=== PATIENT | male | born 1935 | race Caucasian/White ===

== ENCOUNTER 2016-11-07 11:46 | Inpatient (IN) | payer BC ==
--- NOTE | ~2016-11-07 | IDS ---
Interim Discharge Summary [facility] [address] [place]. [address] NAME: SONIA ACOSTA : 37 STATUS : ADM IN PAT#: [id number] AGE: 81 ADM/REG DATE : 11/07/16 MR#: [id number] REPORT SERV DATE: 11/18/16 DICTATED BY: REBECA ORONA DATE: 11/18/16 REPORT STATUS : Draft TRANSCRIBED BY: MODL DATE: 11/18/16 ADMISSION DATE: 11/07/2016 DISCHARGE DATE: ADDENDUM: This is a 81-year-old patient who came in and had pneumoperitoneum and eventually went for a resection of his bowel secondary to microperforation and diverticular abscess. He was initially admitted to the hospitalist service. The patient was doing well and was about to go out on 11/14/2016 and then he became more lethargic and encephalopathic. White cell count went up and a CT scan of the abdomen and pelvis were done and showed some fluid collections as well as a retroperitoneal bleed. The patient did not require blood transfusion. Interventional Radiology tapped two pockets of fluid from the abdomen on the . One of these cultures is growing out Klebsiella and E coli, which is similar to what he is growing out from his surgical culture, which is Klebsiella E coli and Streptococcus viridans. The patient has been on Zosyn now for 11 days and probably can continue for two more days or possibly deescalate to Ancef, but I would prefer to continue the Zosyn for two more days and then discontinue it. His leukocytosis is resolving. His encephalopathy is also resolving. His pain medication was cut in half, and this seemed to help as well. He also had retroperitoneal bleed on the CT scan and his subcu heparin was held for that reason, and he currently has SCDs for DVT prophylaxis. Code status was discussed with the family as well as Dr. Von Carson who is the patient's oncologist. 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 He has had XRT to the spine. Two rounds of chemo for mets to the liver and did not do well with the chemotherapy. The family and Dr. Carson spoke. He is not going to continue on chemotherapy and currently his code status is a DNR. The possibility of hospice versus palliative care was discussed with the family and further decision can be made tomorrow on Saturday. They may choose hospice and for discharge planning. So the patient is doing well after drainage of the fluid and can probably go to the floor tomorrow with the hospitalist service to follow since he was admitted to their service. /MODL Rebeca Orona M.D. / [id number] CC: MD Sue Garces M.D.
--- NOTE | ~2016-11-07 | CN ---
Consultation Report [facility] [id number] [place]. [address] NAME: SONIA ACOSTA SR : 37 STATUS : ADM IN [facility]#: [id number] AGE: 81 ADM/REG DATE : 11/07/16 MR#: [id number] REPORT SERV DATE: 11/08/16 DICTATED BY: NEHA LUGO III DATE: 11/07/16 REPORT STATUS : Draft TRANSCRIBED BY: MODL DATE: 11/07/16 CONSULT DATE OF CONSULTATION: 11/07/2016 REASON FOR CONSULT: 1. Acute abdominal pain. 2. Pneumoperitoneum. 3. Recommendation regarding surgical management. HISTORY OF PRESENT ILLNESS: I am asked to see this 81-year-old male emergently in the emergency room for the above reasons. The patient complains of a one-week history of abdominal pain. The pain is primarily in the lower abdomen. The pain has been associated with some nausea and low-grade fever. The patient describes the pain is about 6/10. It is fairly constant in nature. The pain began one week ago. The patient presented to the emergency room today and CT scan of the abdomen and pelvis was performed, which showed evidence for pneumoperitoneum with no obvious source identified. The patient has a history of a duodenal cancer. He is status post Whipple procedure performed in 2009. He has developed evidence recently for recurrent disease with both hepatic metastasis and pelvic metastasis. He is currently undergoing chemotherapy. The patient has had no blood per rectum. He has had mild diarrhea. He is status post radiation therapy to a pelvic recurrence performed earlier this year. PAST MEDICAL HISTORY: 1. History of duodenal cancer as above, with hepatic and pelvic metastasis. 2. Hyperlipidemia. 3. Whipple procedure in 2009 with adjuvant chemotherapy. SOCIAL HISTORY: The patient is retired. He has no history of tobacco or alcohol use. FAMILY HISTORY: Positive for breast cancer and COPD. REVIEW OF SYSTEMS: The patient's 14-point review of systems is otherwise unremarkable. The patient was admitted to the hospital here in 08/2015 with melena. The patient had an upper endoscopy in 11/2015 for followup of an acute gastrojejunal ulcer, which necessitated admission in 08/2015. The ulcer had resolved at that time. OBJECTIVE PHYSICAL EXAMINATION: GENERAL: This is a male, in no acute distress. He is comfortable. He is alert and oriented x3. Consultation Report [facility] [address] [place]. [address] NAME: SONIA ACOSTA SR : 37 STATUS : ADM IN PAT#: [id number] AGE: 81 ADM/REG DATE : 11/07/16 MR#: [id number] REPORT SERV DATE: 11/08/16 DICTATED BY: NEHA LUGO III DATE: 11/07/16 REPORT STATUS : Draft TRANSCRIBED BY: MODL DATE: 11/07/16 VITAL SIGNS: Blood pressure 119/63, temperature 97.8, pulse 118. HEENT: Unremarkable. Cranial nerves 2 through 12 are normal. LUNGS: Clear. CARDIAC: Normal. ABDOMEN: Slightly distended and soft. He has mild tenderness in the lower abdomen with no guarding and no peritoneal signs. EXTREMITIES: Normal. LABORATORY DATA: White blood cell count is elevated at 17,000. Hematocrit 40.6. There are 3% bands. Electrolytes are remarkable for creatinine of 1.67. Glucose is elevated at 266. Total bilirubin is elevated at 2.3. Lipase is 46. CT scan of the abdomen and pelvis, which I reviewed shows pneumoperitoneum with minimal fluid in the pelvis. The source of the pneumoperitoneum is undefined. There is noted to be evidence for pneumomediastinum as well. There is noted to be atelectasis. There is noted to be a poorly defined area of decreased attenuation within the inferior right hepatic lobe consistent with known metastatic disease. This is unchanged from prior scan. There is noted to be pneumobilia likely related to the patient's previous biliary anastomosis. There were no inflammatory changes or definite source for the pneumoperitoneum identified. No bowel wall thickening is noted. Previous MRI of the lumbar spine showed metastatic replacement in S1 in the sacrum involving S2 as well. ASSESSMENT: 1. A 81-year-old male with evidence for pneumoperitoneum, of unclear etiology. The patient has no clinical evidence for sepsis or an acute surgical abdomen. This apparently has been ongoing for one week. There is minimal fluid in the abdominal cavity. 2. History of stage IV duodenal cancer, with known hepatic and osseous metastasis, with ongoing chemotherapy. 3. Hyperglycemia. 4. History of Whipple procedure in 2009. PLAN: I have discussed this with the patient and his family. I explained that consideration for surgery is certainly warranted. However, based on the fact that this is apparently been ongoing for one week, based on minimal fluid in the abdominal cavity, based on the patient's fairly benign clinical exam, based on his ongoing chemotherapy and stage IV malignancy and surgical procedures (the patient has a history of a previous appendectomy in addition to the above), I feel that nonoperative management is warranted at this time, as this may obviate the need for a laparotomy. The patient will be admitted and started on clear fluids, bowel rest, and antibiotics. I have requested a repeat CT scan of the thorax, abdomen, and pelvis with oral contrast tomorrow. I have explained to the patient and family that if at any time his condition deteriorates, then surgical intervention would be needed. Also, if he does not improve, then surgical intervention would be needed. However, based on the fact that he has only pneumoperitoneum with no evidence for any significant abdominal fluid or pelvic fluid, based on the fact that the exact site of pneumoperitoneum is undefined, based on the fact this has been ongoing for one week and a fairly benign clinical exam, I think that a Consultation Report [address] [place]. [address] NAME: SONIA ACOSTA SR : 37 STATUS : ADM IN PAT#: [id number] AGE: 81 ADM/REG DATE : 11/07/16 MR#: [id number] REPORT SERV DATE: 11/08/16 DICTATED BY: NEHA LGUO III DATE: 11/07/16 REPORT STATUS : Draft TRANSCRIBED BY: CHANTEL DATE: 11/07/16 trial of nonoperative management is definitely warranted. Again, the possible need for surgical intervention at any time depending on his clinical course and radiographic findings has been fully and clearly explained to the patient and family. The fact that this is a serious condition in a patient with stage IV disease with major risk for morbidity and mortality with or without surgery has been explained. The patient and family's questions were answered. They clearly understand the risks and agreed to this as planned. We will follow the patient closely with you. [place]/CHANTEL Neha Lugo III, M.D. / [id number] CC: MD Sue Domingo M.D.
--- NOTE | ~2016-11-07 | CN ---
Consultation Report [facility] [address] [place]. [address] NAME: SONIA ACOSTA SR : 37 STATUS : ADM IN PAT#: [id number] AGE: 81 ADM/REG DATE : 11/07/16 MR#: [id number] REPORT SERV DATE: 11/12/16 DICTATED BY: NEHA LUGO III DATE: 11/12/16 REPORT STATUS : Draft TRANSCRIBED BY: CHANTEL DATE: 11/12/16 DATE OF CONSULTATION: 11/12/2016 HISTORY OF PRESENT ILLNESS: Mr. Acosta has developed increasing lower abdominal discomfort this morning. He had a temperature yesterday of 102 degrees. His white blood cell count this morning was elevated at 16,000. On exam, he now has localized and definite left lower quadrant tenderness with guarding, which was not present previously. Based on this, in spite of somewhat equivocal findings on CT scan, I feel the patient most likely has a perforated sigmoid diverticulitis. There is a small amount of fluid in the pelvis which is likely related to this. The patient has failed to respond to several days of antibiotics and I therefore feel that laparotomy with probable colectomy and colostomy is indicated. We will schedule this to be done today for him. On this procedure, the risks, benefits, and alternatives, including, but not limited to the risk for bleeding, infection, enterotomy, injury to any abdominal structure, postop small-bowel obstruction, ileus, incisional hernia, dehiscence, probable need for colostomy, ureteral injury, and unforeseen complications including deep venous thrombosis, pulmonary embolus, myocardial infarction, stroke, pneumonia, and , have been fully and completely explained to the patient's family at length prior to surgery. The fact that this is a major operation with risk for major morbidity and mortality has been explained, as well as expected length of recovery. This patient has multiple comorbid risk factors including stage IV duodenal cancer, which would markedly increase his risk for complications and . This has been explained. The patient and family had questions that have been answered. They understand the risks and agreed to the surgery as planned. AZ/CHANTEL Neha Lugo III, M.D. / [id number] CC: MD Sue Garces M.D.
--- NOTE | ~2016-11-07 | DS ---
Discharge Summary [facility] [address] [place]. [address] NAME: SONIA ACOSTA SR : 37 STATUS : DIS IN PAT#: [id number] AGE: 81 ADM/REG DATE : 11/07/16 MR#: [id number] REPORT SERV DATE: 12/11/16 DICTATED BY: FANI ROSENTHAL DATE: 11/29/16 REPORT STATUS : Draft TRANSCRIBED BY: MODL DATE: 11/29/16 ADMISSION DATE: 11/07/2016 DISCHARGE DATE: 11/29/2016 CHIEF COMPLAINT ON ADMISSION: Abdominal pain. DISCHARGE DIAGNOSES: 1. Pneumoperitoneum and pneumomediastinum secondary to sigmoid perforation, status post sigmoid colectomy and ostomy placement. 2. Sepsis, resolved. 3. Infected pelvic fluid collection, status post HUMA drain. 4. Superficial wound infection, status post wound VAC. 5. Extended spectrum beta-lactamase urinary tract infection. 6. Episode of supraventricular tachycardia, resolved. 7. Metastatic duodenal cancer with METS to the liver. 8. Vesicocutaneous fistula. 9. Weakness/deconditioning. 10.History of Whipple. HISTORY OF PRESENT ILLNESS: Please see full H and P for details regarding initial presentation by Dr. Javid Chahal. HOSPITAL COURSE: Please see interim summary by Dr. Radha Orona regarding his ICU stay and then Dr. Sean Eagle regarding his initial time outside of the ICU. I took over the care of the patient on 11/27/2016. Since that time, the patient's blood pressure has been low. We have decreased his Cardizem, and he has been maintaining a normal sinus rhythm on Coreg alone. Otherwise, he has had good output from his ostomy. Vesicocutaneous fistula is improving. Continue wound VAC and Thomas. Keep Thomas at discharge. Follow up with Dr. Plascencia in two weeks. The patient is eating having very minimal pain. He will be discharged to rehab for further recuperation. He is a Do Not Resuscitate at discharge. Outpatient followup with Dr. Plascencia in two weeks. MEDICATION LIST: Coreg 3.125 p.o. b.i.d., docusate 100 mg p.o. b.i.d., Tylenol p.r.n., MD Kaur p.r.n., Zofran p.r.n. oxycodone p.r.n., Phenergan p.r.n., MiraLAX p.r.n., Marinol p.r.n. nausea, vitamin D, and Ativan p.r.n. Time spent on this discharge is greater than 30 minutes. Please see again interim summaries by Dr. Eagle and Dr. Orona regarding initial parts of the patient's hospitalization. I have addressed family, Case Management, and son at the bedside. ADDENDUM Please note discharge date was changed to 11/30/2016. The patient's discharge was held up on 11/29/2016 due to concern for increasing output from the patient's wound VAC which covered his vesicocutaneous fistula. He was kept in the hospital for one additional day for Dr. Plascencia to assess. He had a cystogram and Dr. Plascencia reviewed this with Urology as Discharge Summary [address] [address] NAME: SONIA ACOSTA SR : 37 STATUS : DIS IN PAT#: [id number] AGE: 81 ADM/REG DATE : 11/07/16 MR#: [id number] REPORT SERV DATE: 12/11/16 DICTATED BY: FANI ROSENTHAL DATE: 11/29/16 REPORT STATUS : Draft TRANSCRIBED BY: CHANTEL DATE: 11/29/16 well as Radiology and felt that this was healing appropriately and no additional intervention needed to be obtained at this time and the patient was discharged to rehab on 11/30/2016. Time spent on this discharge is greater than 30 minutes. DNK/MODL Fani Rosenthal MD / [id number] CC: MD Sue Rosa M.D.
--- NOTE | ~2016-11-07 | OP ---
Record Of Operation [facility] [address] [place]. [address] NAME: SONIA ACOSTA SR : 37 STATUS : ADM IN PAT#: [id number] AGE: 81 ADM/REG DATE : 11/07/16 MR#: [id number] REPORT SERV DATE: 11/13/16 DICTATED BY: NEHA LUGO III DATE: 11/12/16 REPORT STATUS : Draft TRANSCRIBED BY: MODL DATE: 11/12/16 DATE OF PROCEDURE: 11/12/2016 PREOPERATIVE DIAGNOSIS: Pneumoperitoneum, probable perforated viscus. POSTOPERATIVE DIAGNOSES: Pneumoperitoneum, probable perforated viscus; perforated sigmoid colon most likely secondary to diverticular disease. PROCEDURE: Laparotomy with sigmoid colectomy, colostomy, and Tre's pouch. SURGEON: Neha Lugo M.D. ANESTHESIA: General with intubation. COMPLICATIONS: None. ESTIMATED BLOOD LOSS: 50 mL. SPECIMEN: Sigmoid colon. DRAINS: Zackary-Atkins in abdominal cavity and Bhavana in subcutaneous tissue. LAP AND SPONGE COUNT: Correct x3. BRIEF HISTORY: This is a 81-year-old male, who presented initially with pneumoperitoneum of unclear etiology. He initially had been treated nonoperatively with bowel rest and antibiotics. He improved greatly over the last several days. Yesterday morning, was afebrile and tolerating a diet well with normal bowel function. During the late evening yesterday, the patient developed increasing abdominal pain with evidence for sepsis with tachycardia, fever, and leukocytosis. His clinical exam also changed with marked tenderness in the left lower quadrant with peritoneal signs. It was felt based on his clinical exam that he most likely had perforated sigmoid diverticulitis. It was felt that he had several days of bowel rest and antibiotics, and failed to improve, and therefore, the emergent laparotomy with probable sigmoid colectomy and colostomy were indicated. The fact this was a major operation in this patient who is chronically ill with stage IV duodenal cancer and recent chemotherapy was explained to the patient and family. The procedure, risks, benefits, and alternatives, including but not limited to the risk for bleeding, infection, enterotomy, injury to any abdominal structure, postop small bowel obstruction, ileus, incisional hernia, dehiscence, ureteral injury, prolonged ventilator dependency, and unforeseen complications including deep venous thrombosis, pulmonary embolus, myocardial infarction, stroke, pneumonia, and , were fully and completely explained to the patient and family at length. The fact that this was a major operation in an attempt to save the patient's life was explained and the fact that if he did have a perforated viscus, he would likely not survive without surgery was explained. The patient and family had questions, which were answered. They fully understood the risks and agreed Record Of Operation [address] [place]. [address] NAME: SONIA ACOSTA : 37 STATUS : ADM IN PAT#: [id number] AGE: 81 ADM/REG DATE : 11/07/16 MR#: [id number] REPORT SERV DATE: 11/13/16 DICTATED BY: NEHA LUGO III DATE: 11/12/16 REPORT STATUS : Draft TRANSCRIBED BY: CHANTEL DATE: 11/12/16 to surgery as planned. FINDINGS: The patient had evidence for a small perforation in the proximal sigmoid colon with peritoneal contamination. There was no definite evidence for malignancy in the pelvis. DESCRIPTION OF PROCEDURE: After being properly identified and after discussing risks of surgery with the patient and family again in the preoperative area, he was taken to the operating room and placed in supine position on the operating room table. General anesthesia was administered and he was intubated without difficulty. His abdomen was prepped and draped sterilely in the usual fashion. After an appropriate "time-out" per JCAHO standards, a midline incision was made from just below the umbilicus towards the pubis. The incision was continued through the subcutaneous tissue. Hemostasis was controlled with cautery. The subcutaneous tissue and fascial levels were edematous. The incision was continued through the fascia. The abdominal cavity was entered. Immediately on entering the abdomen, we encountered a marked amount of purulent feculent-smelling liquid. This was quickly aspirated dry. There was clearly an inflammatory process centered around the sigmoid colon. After some inspection, we identified a small opening in the anterior wall of the proximal sigmoid colon, clearly the point of perforation. The patient had fibrous material over the small bowel and colon in this area, possibly related to the patient's previous radiation. The point of perforation was on the anterior wall of the sigmoid colon. There was no definite diverticulum associated with this, although the patient had evidence for diverticular disease elsewhere. 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 The entire sigmoid colon was thickened and inflamed. Using sharp dissection, peritoneal reflection to the left colon and sigmoid colon was divided along the line of Toldt. The left colon and sigmoid colon were mobilized medially. We made a window in the mesentery to the proximal sigmoid colon, near its junction with the left colon, proximal to the area of perforation. A JUAN JOSÉ stapler was used to divide the colon at this point. We then made a window in the mesentery to the distal sigmoid colon, distal to the area of perforation and to the most inflammatory part of the involved sigmoid colon, and a JUAN JOSÉ stapler was used to divide the sigmoid colon distally. A portion of sigmoid colon was left in place, as it did not appear to be involved. The mesentery to the involved portion of the sigmoid colon was then divided using a harmonic scalpel. The proximal sigmoid colon margin was marked with a suture and the area of perforation was marked with a suture. This was sent for permanent pathology. The area was irrigated copiously with saline. Hemostasis was assured. A #1 Prolene suture was placed through the divided end of the distal sigmoid colon and this was secured to the left lateral pelvic wall to identify it later for colostomy closure. The left colon was mobilized medially up to the splenic flexure to allow for adequate mobilization for our colostomy. A circular incision was then made in the left lower quadrant of the abdominal wall. The divided end of the distal left colon was brought through this as a colostomy. The entire lower abdomen was irrigated copiously with saline. Hemostasis was assured. A Record Of Operation [facility] [id number] [facility] [place]. [address] NAME: SONIA ACOSTA SR : 37 STATUS : ADM IN [facility]#: [id number] AGE: 81 ADM/REG DATE : 11/07/16 MR#: [id number] REPORT SERV DATE: 11/13/16 DICTATED BY: NEHA LUGO III DATE: 11/12/16 REPORT STATUS : Draft TRANSCRIBED BY: MODL DATE: 11/12/16 Zackary-Atkins drain was brought through a separate stab wound to the right of the incision and placed in the pelvis. The fascia was closed with a running looped #1 PDS suture. Skin was closed with skin anabell over a Trade drain, which was brought out through the inferior aspect of the incision. The stapled end of the divided left colon was excised. The colostomy was matured with interrupted 3-0 chromic sutures to the subcuticular skin. Upon completion of this, the colostomy was pink, viable, and patent. Dressings and a stoma appliance were applied. Anesthesia was reversed and the patient was taken to the recovery room in stable condition. He tolerated the procedure well. His family was informed results of surgery. RHJ/MODL Neha Lugo III, M.D. / [id number] CC: MD Sue Garces M.D.
--- NOTE | ~2016-11-07 | CN ---
Consultation Report [facility] [address] [place]. [address] NAME: SONIA ACOSTA SR : 37 STATUS : ADM IN PAT#: [id number] AGE: 81 ADM/REG DATE : 11/07/16 MR#: [id number] REPORT SERV DATE: 11/08/16 DICTATED BY: LALO SHAH JR. DATE: 11/08/16 REPORT STATUS : Draft TRANSCRIBED BY: MODJessica DATE: 11/08/16 CONSULTATION DATE OF CONSULTATION: 11/08/2016 REQUESTING PHYSICIAN: ER. REASON FOR CONSULTATION: Pneumomediastinum. BRIEF HISTORY: This is a 81-year-old white male who presented with complaints of one-week history of abdominal pain primarily in the lower abdomen with associated nausea and low- grade fever. He described his pain in this area to be fairly constant beginning a week ago and being 5 or 6/10 on a pain scale. Once he presented to the emergency room, he underwent CT scan, which showed evidence of pneumoperitoneum and pneumomediastinum without an obvious source. He has a history of duodenal cancer and previous Whipple in 2009 with recent evidence of recurrent disease in the liver and pelvis. He has been currently undergoing chemotherapy with his last treatment approximately 10 days ago. He also had a previous pelvic radiation earlier this year. We were asked to see him for further recommendations in regard to his pneumomediastinum. 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 PREVIOUS SURGICAL HISTORY: Includes a Whipple in 2009 followed by chemotherapy, previous hernia repair, and knee surgery. ALLERGIES: NONE. SOCIAL HISTORY: The patient is retired. He does not drink alcohol or smoke. 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 FAMILY HISTORY: Positive for breast cancer and COPD. HOME MEDICATIONS: Include Phenergan 25 mg every six hours as needed for nausea and vomiting, Marinol 2.5 mg p.o. twice daily p.r.n. nausea, Zofran 8 mg every 12 hours as needed for nausea and vomiting, Roxicodone 10 mg p.o. every four hours as needed for pain, vitamin D3 1000 units p.o. daily, Diflucan 200 mg p.o. daily for seven days prior to each chemo dose, Ativan 0.5 mg p.o. every four hours as needed for anxiety, nystatin oral suspension 500,000 units per 5 mL p.r.n. for thrush. REVIEW OF SYSTEMS: Significant for abdominal pain, nausea, poor appetite. Complete 12-point review of systems done. All other systems negative except the above-mentioned pertinent positives in the history of present illness. Consultation Report [facility] [id number] [place]. [address] NAME: SONIA ACOSTA SR : 37 STATUS : ADM IN PAT#: [id number] AGE: 81 ADM/REG DATE : 11/07/16 MR#: [id number] REPORT SERV DATE: 11/08/16 DICTATED BY: LALO SHAH JR. DATE: 11/08/16 REPORT STATUS : Draft TRANSCRIBED BY: CHANTEL DATE: 11/08/16 PHYSICAL EXAMINATION: GENERAL: A 81-year-old white male, alert, in no acute distress, appearing his stated age. VITAL SIGNS: Afebrile. Heart rate 110 to 120s, respirations 16-18 per minute, blood pressure 110 to 120 systolic over 60 diastolic, oxygen saturation 94%-95%. HEAD EARS, EYES, NOSE, AND THROAT: Normocephalic, atraumatic. Pupils equal, round, and reactive to light. Ears, nose, and throat without drainage, lesions, or exudates noted. NECK: Supple. No lymphadenopathy. JVD or bruits noted. Trachea midline. No obvious goiter. CHEST: With symmetrical bilateral movement. No chest wall deformities noted. CARDIOVASCULAR: Revealed regular rate and rhythm. S1, S2. No gallop, murmur, or rub. RESPIRATORY: Lungs clear to auscultation anteriorly bilaterally. GASTROINTESTINAL: Abdomen is soft, nondistended, but tender to palpation in the lower quadrants. Normal bowel sounds. : The patient voids without difficulty, otherwise deferred. MUSCULOSKELETAL: Without obvious kyphosis or scoliosis noted. There is normal range of motion of all four extremities. No significant bony abnormalities noted. NEUROLOGIC: Grossly intact. Moves all extremities x4. He is alert, oriented x3 with no focal deficits. SKIN: Warm and dry with no breakdown or lesions noted. Normal turgor. EXTREMITIES: Without clubbing, cyanosis, or edema. 3+ pulses bilaterally. PSYCH: Normal mood and affect, and pleasant. Answers all questions appropriately. HEMATOLOGIC/LYMPHATIC: Without obvious ecchymosis or petechiae. There is no supraclavicular axillary or cervical lymphadenopathy noted. DATA: CT of the chest, abdomen, and pelvis showing pneumomediastinum, which extends to the thoracic inlet through the diaphragmatic hiatus and the lower mediastinum appears unchanged from previous CT scan yesterday. A small amount of air in the neck and the left lateral chest with no extravasation of contrast into the mediastinum. Findings are concerning for perforated viscus. Stable moderate hiatal hernia with dependent atelectasis of both lungs. Moderate to large volume pneumoperitoneum in the abdomen and small to moderate pneumoperitoneum in the pelvis appear slightly increased since a prior exam with no extravasation of enteric contrast seen. The enteric contrast reaches the cecum. Small amount of free fluid in the abdomen and pelvis, but no organized collection or abscess identified. Stable metastatic changes in the right hepatic lobe and stable lytic lesions in the sacrum on the right. LABS: Dated 11/08/2016, lactate 1.2. Sodium 138, potassium 4.4, BUN 28, creatinine 1.31, glucose 126, magnesium 2.4, phosphorus 2.8. White blood count 12.1, hemoglobin 11.3, hematocrit 34, platelet 166. PROBLEM LIST: 1. Pneumoperitoneum with possible viscus perforation. 2. Pneumomediastinum. 3. Stage IV cancer with metastasis to the right lobe of the liver and pelvis. Consultation Report [address] [place]. [address] NAME: SONIA ACOSTA SR : 37 STATUS : ADM IN [facility]#: [id number] AGE: 81 ADM/REG DATE : 11/07/16 MR#: [id number] REPORT SERV DATE: 11/08/16 DICTATED BY: LALO SHAH JR. DATE: 11/08/16 REPORT STATUS : Draft TRANSCRIBED BY: MODL DATE: 11/08/16 4. Abdominal pain. 5. Nausea. 6. Leukocytosis. 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 His last chemo was approximately 10 days ago. He now has pneumoperitoneum and pneumomediastinum, likely secondary to a microperforation in the viscus. There is no extravasation of contrast from the esophagus to suggest any tear. Likely the pneumomediastinum is from air traveling up the hiatus in abdomen into the chest. Dr. Plascencia knows the patient well and is following along. I think given his stage IV cancer, conservative treatment is likely unless there are significant abscess formation or leakage that would need to be repaired. We will repeat CT scan today. There were not any concerns for this yet. I do not see any need for thoracic intervention. We will defer all future recommendations to Dr. Plascencia. The pneumomediastinum should dissipate in time. I will be available again if needed. DICTATED BY: KRISSY Jason/CHANTEL Lalo Shah Jr., M.D. / [id number] CC: Albin Thompson MD
--- NOTE | ~2016-11-07 | CN ---
Consultation Report [facility] [address] [place]. [address] NAME: SONIA ACOSTA SR : 37 STATUS : ADM IN [facility]#: [id number] AGE: 81 ADM/REG DATE : 11/07/16 MR#: [id number] REPORT SERV DATE: 11/15/16 DICTATED BY: NAVEEN MARS DATE: 11/15/16 REPORT STATUS : Draft TRANSCRIBED BY: MODL DATE: 11/15/16 DATE OF CONSULTATION: 11/15/2016 REASON FOR CONSULTATION: SVT. HISTORY OF PRESENT ILLNESS: Mr. Acosta is a 81-year-old gentleman with a very complex medical history and hospital course, briefly, who presented with pneumomediastinum secondary to perforated bowel, who underwent a laparotomy with sigmoid colectomy, colostomy, and Tre's pouch on 11/12. During his hospital stay, he has been treated with antibiotics for sepsis as well as transferred to the MICU for interval respiratory failure. While in the ICU, he had rapid ventricular rate at around 150 beats per minute and was started on diltiazem drip. He was also given diltiazem bolus. His rapid rates resolved shortly thereafter. This prompted consultation to Cardiology for further evaluation and recommendations. The patient is delirious and somewhat sluggish, therefore, limiting history. He has no cardiac history per his report. He has no cardiac symptoms either. He denies having any chest pains, pressures, palpitations. He otherwise has no specific cardiac complaints that I am able to discern. PAST MEDICAL HISTORY: 1. Duodenal adenocarcinoma stage 4, followed by Dr. Aragon, with hepatic and pelvic mets, undergoing chemo. 2. Hyperlipidemia. 3. Melena in 2016. 4. Acute gastrojejunal ulcer status post upper endoscopy. 5. Whipple's procedure for duodenal cancer with resection with Dr. Patel in 2010. SOCIAL HISTORY: Noncontributory (unable to obtain due to patient's condition). FAMILY HISTORY: Noncontributory (unable to obtain due to patient's current status). ALLERGIES: NONE. HOME MEDICATIONS: Vitamin D, Marinol, Diflucan, Ativan, Mycostatin, Zofran, Roxicodone, Phenergan, and chemotherapy. PHYSICAL EXAMINATION: VITAL SIGNS: Blood pressure 145/69, pulse 72, temperature 97.2. GENERAL: Delirious, sluggish, in no acute distress, failure to thrive. NEURO: Awake, alert and oriented x3; no focal deficits, appropriate mood. HEAD AND NECK: Normocephalic and atraumatic. Dry mucous membranes. Breathing through mouth. JVP flat. RESPIRATORY: Apparently normal work of breathing. Clear to auscultation anteriorly. No wheezes, rales, or rhonchi. CV: Regular rhythm, normal S1/S2, no murmurs, rubs or gallops. ABDOMEN: Soft, nontender, nondistended, status post surgical intervention. No rebound or Consultation Report [facility] [address] [place]. [address] NAME: SONIA ACOSTA : 37 STATUS : ADM IN [facility]#: [id number] AGE: 81 ADM/REG DATE : 11/07/16 MR#: [id number] REPORT SERV DATE: 11/15/16 DICTATED BY: NAVEEN MARS DATE: 11/15/16 REPORT STATUS : Draft TRANSCRIBED BY: CHANTEL DATE: 11/15/16 guarding. EXTREMITIES: 1 to 2+ pitting edema. 1+ pulses in his radial region bilaterally. SKIN: Warm, dry and intact; no rash. PERTINENT TEST FINDINGS: Potassium 4.6, creatinine 1.2, magnesium 2.2, albumin 1.6. White blood cell count 18.3, hemoglobin 11, platelets 411. Echocardiogram with mild systolic dysfunction, EF 45%, global hypokinesis. 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 IMPRESSION AND PLAN: Mr. Acosta is a complex 81-year-old gentleman with a complicated medical course here as well as a heavy burden of disease (in particular cancer) with an isolated episode of supraventricular tachycardia/atrioventricular kelly reentrant tachycardia while in the ICU. This is likely multifactorial in etiology, however, responded well to calcium channel pancho. In the future, I would recommend pushing adenosine for episodic supraventricular tachycardia as this will likely terminate any recurrent episodes immediately. Otherwise, I agree with putting him on oral diltiazem to suppress future arrhythmias. Given mild systolic dysfunction, it will be helpful to potentially get him on low-dose beta-pancho. He has hypertensive pressures at this point in time and therefore should tolerate this drug well. His heart rates are also in the 70 range, so he should tolerate this drug well in addition to his diltiazem. Given his age and comorbidities, it is also presumed that he probably has coronary artery disease, therefore, I think it will be helpful to start baby aspirin if tolerable and okay with Primary Service. Thank for this consultation, please call with questions. ELDA/CHANTEL Naveen Mars MD / [id number] CC: MD Sue Garces M.D.
--- NOTE | ~2016-11-07 | IDS ---
Interim Discharge Summary [facility] [address] [place]. [address] NAME: SONIA ACOSTA SR : 37 STATUS : ADM IN PAT#: [id number] AGE: 81 ADM/REG DATE : 11/07/16 MR#: [id number] REPORT SERV DATE: 11/14/16 DICTATED BY: REBECA ORONA DATE: 11/14/16 REPORT STATUS : Draft TRANSCRIBED BY: MODL DATE: 11/14/16 ADMISSION DATE: 11/07/2016 DISCHARGE DATE: DATE OF TRANSFER TO THE MICU: 11/11/2016 HOSPITAL COURSE: This is a 81-year-old patient, who was admitted to the hospitalist service on 11/08/2016, and has known duodenal adenocarcinoma, stage IV. He is status post chemotherapy, probably about 10 days prior to admission and has a Port-A-Cath in place. His chief complaint upon admission was that of abdominal discomfort. He was evaluated in the ER and was found to have pneumomediastinum and pneumoperitoneum. Dr. Uli Plascencia was consulted at the time of admission and it was thought prudent to follow the patient to see if symptoms worsen and the thought was that this could be a microperforation secondary to radiation enteritis or diverticulitis. The patient was admitted to the hospitalist service and then had a consultation to Dr. Shah of Cardiothoracic Surgery and it was felt that there was not any surgical issue regarding the chest. Then on 11/11/2016, the patient became tachycardic and febrile and was transferred to the intensive care unit. Dr. Plascencia was then asked to see the patient again and at this point, Dr. Plascencia saw the patient again, however, after further observation, it was thought prudent to take the patient to the operating room for exploratory laparotomy for suspected pneumoperitoneum and probable perforated viscous, this occurred on 11/13/2015, so the patient had a sigmoid colectomy, colostomy with Tre's pouch, and was extubated after surgery and brought back to the MICU. He has remained in stable condition while here in the MICU. He did have issues with SVT and was started on a Cardizem drip on 11/13/2016. He then converted back into normal sinus rhythm. The plan will be to transition the patient to p.o. Cardizem at 60 mg q.6h., observe to see if he can tolerate his dose and then may be transition him to a long-acting Cardizem. I guess other plans as far as his stage IV duodenal adenocarcinoma is concerned will be either per GI and/or Hematology Oncology. The patient has been stable and now is currently out of bed. He only has an arterial line in place, which will be discontinued today. He continues on vancomycin and Zosyn for now. He did have abdominal cultures, intraoperative cultures that grew out E coli and Klebsiella pneumoniae, both of which should be sensitive to the Zosyn. At this time, we will discontinue the vancomycin. His last procalcitonin was on 11/11/2016, which was 0.95, and I will order a procalcitonin for tomorrow morning on 11/15/2016. He has thus far been on Zosyn since 11/07/2016, so that is seven days out already, probably should complete at least 10 days of IV antibiotic therapy depending on what his clinical findings are. He is otherwise from our standpoint stable for transfer to the monitored bed to be followed again by the hospitalist service. Of note, the patient did have a leukocytosis that peaked at 29,000 and today is 17,000. Hemoglobin has dropped slightly from 11.3 to 9.5. We will continue to follow that. Platelets have been stable and renal function has been stable. /MODJessica Rebeca Orona, Interim Discharge Summary [address] [address] NAME: SONIA ACOSTAD SR : 37 STATUS : ADM IN PAT#: [id number] AGE: 81 ADM/REG DATE : 11/07/16 MR#: [id number] REPORT SERV DATE: 11/14/16 DICTATED BY: REBECA ORONA DATE: 11/14/16 REPORT STATUS : Draft TRANSCRIBED BY: CHANTEL DATE: 11/14/16 Magalys / [id number] CC: MD Sue Garces M.D.
--- NOTE | ~2016-11-07 | IDS ---
Interim Discharge Summary [facility] [address] [place]. [address] NAME: SONIA ACOSTA SR : 37 STATUS : ADM IN [facility]#: [id number] AGE: 81 ADM/REG DATE : 11/07/16 MR#: [id number] REPORT SERV DATE: 11/27/16 DICTATED BY: LALO AIKEN II DATE: 11/26/16 REPORT STATUS : Draft TRANSCRIBED BY: MODL DATE: 11/26/16 ADMISSION DATE: 11/07/2016 DISCHARGE DATE: DATE OF INTERIM: 11/26/2016. INTERIM DIAGNOSES: 1. Pneumoperitoneum and pneumomediastinum secondary to sigmoid perforation, status post sigmoid colectomy and ostomy placement. 2. Sepsis. 3. Infected pelvic fluid collection, status post HUMA drain. 4. Superficial wound infection, status post wound VAC. 5. Extended-spectrum beta-lactamase urinary tract infection. 6. Supraventricular tachycardia, resolved. 7. Metastatic duodenal cancer with metastasis to liver. 8. Generalized weakness, deconditioning, and debility secondary to prolonged hospitalization. 9. History of Whipple. CONSULTS: 1. Lalo Shah M.D. with Cardiothoracic Surgery. 2. Igor Plascencia M.D. with Surgery. 3. Radha Orona M.D. with Pulmonary Critical Care. 4. Naveen Plascencia MD with Cardiology. PROCEDURES: Laparotomy with sigmoid colectomy, colostomy, and Tre's pouch as well as HUMA drain placement. BRIEF HISTORY OF PRESENT ILLNESS: The patient is a 81-year-old male with the above history, who had presented to [facility] on 11/07/2016 due to abdominal pain where he was found to have fairly extensive pneumoperitoneum and pneumomediastinum. For detailed history and physical examination, please see Dr. Javid Chahal's note from 11/07/2016. HOSPITAL COURSE: The patient has had a fairly long hospitalization with a significant portion in the ICU under the care of Dr. Orona. For details of the patient's ICU stay, please see her interim summaries on 11/14/2016 and 11/18/2016. I took over the patient's care starting 11/21/2016. At that point, regarding the patient's perforated sigmoid colon, it was uncertain if it was perforated due to a diverticulum or due to diffuse colitis from prior radiation injury. The patient was on Zosyn essentially the entire time from admission. His cultures of the abdominal fluid collection drained on the showed E. coli and Klebsiella similar to prior surgical cultures from the which was sensitive to Ancef. The patient had received five more days of Zosyn since the drain and was switched to Ancef. He had also developed a superficial wound infection which was opened, drained, packed, and subsequently Dr. Plascencia placed a wound VAC. Urinalysis from 11/18/2016 showed a significant amount of pyuria with greater than 182 white cells and urine growing 10,000 CFU of Klebsiella pneumoniae ESBL which was actually resistant to Zosyn. At that Interim Discharge Summary [address] [address] NAME: SONIA ACOSTA : 37 STATUS : ADM IN [facility]#: [id number] AGE: 81 ADM/REG DATE : 11/07/16 MR#: [id number] REPORT SERV DATE: 11/27/16 DICTATED BY: LALO AIKEN II DATE: 11/26/16 REPORT STATUS : Draft TRANSCRIBED BY: MODJessica DATE: 11/26/16 point, he had had at least 7 days of coverage for the intraperitoneal fluid collection and was switched to Levaquin for the ESBL. Repeat urinalysis on the showed persistent WBC of 72 with large leukocyte esterase, however, followup culture was negative growing only yeast. 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 At this point, the patient is maintaining a Thomas catheter in his wound VAC with much improvement in his output from his wound VAC, so Dr. Plascencia thinks his fistula is closing. Dr. Plascencia has recommended continuing Thomas for at least another week with the wound VAC. At this point, his white count has come down and Levaquin discontinued due to follow up culture being normal. His white count is down to 7. He is afebrile, vitals are stable. He did have a few days of abdominal distention and was found to have an ileus, status post NG tube decompression with subsequent improvement in ostomy output is doing well. At this point, he is quite stable, tolerating a diet, and feeling well. His family is arranging transfer to rehab in [place] to [facility]. He warrants no further chemotherapy and follow up with Dr. Carson as an outpatient. According to the family, the transfer is arranged for Saturday. Dr. Plascencia anticipates the patient will only need a few more days in the hospital, so if this can be arranged sooner, it may be possible. Dr. Arvind Rubalcava will take over the patient's care starting tomorrow. TRA/CHANTEL Lalo Aiken II, MD / [id number] CC: MD Sue Nunez II, M.D.
--- NOTE | ~2016-11-07 | HP ---
History And Physical [place] [id number] [facility] [place]. [address] NAME: SONIA ACOSTA SR : 37 STATUS : ADM IN PAT#: [id number] AGE: 81 ADM/REG DATE : 11/07/16 MR#: [id number] REPORT SERV DATE: 11/08/16 DICTATED BY: JAVID SALVADOR DATE: 11/08/16 REPORT STATUS : Draft TRANSCRIBED BY: MODL DATE: 11/08/16 DATE OF ADMISSION: 11/07/2016 CHIEF COMPLAINT: Abdominal pain. HISTORY OF PRESENT ILLNESS: This is a 81-year-old male with history of duodenal adenocarcinoma stage IV, followed by Dr. Sonia Aragon, who presents to the emergency room at [facility] with the above-mentioned complaint. History is obtained from the patient, his daughter and son who are at bedside, and reviewing data available on the [facility] system. Mr. Acosta is a good historian. He had suprapubic discomfort and pain for about one to two weeks now, which has been progressively getting worse. He has had chemotherapy, the last dose being about 10 days ago as well. Today, when the pain was unbearable the patient's family decided to bring him to the emergency room to be evaluated. In the emergency room, initial workup including CT scan of his abdomen and pelvis showed pneumomediastinum and pneumoperitoneum. Dr. Uli Plascencia was called by the emergency room, who saw the patient in the emergency room today and advised admission to the Hospitalist Service for conservative management and observation. He thinks it was probably microperforation secondary to radiation enteritis and/or diverticulitis. Hospitalist Service is asked to admit her. At the time of my evaluation in the emergency room, Mr. Acosta denied any chest pain, palpitations, or orthopnea. He had no cough, hemoptysis, night sweats, or weight loss. He has not had any recent falls or loss of consciousness. No history of fevers or chills. No history of vomiting or diarrhea, although he did have some nausea. He did complain of suprapubic discomfort along with some pain which he described as like a band from his xiphoid process to the symphysis pubis. No history of hematemesis, hematochezia, or hematuria. No other history of recent travel or exposures other than those mentioned above. PAST MEDICAL HISTORY: Significant for history of duodenal adenocarcinoma, currently stage IV. He has had a Whipple's procedure for his duodenal cancer and resection done by Dr. Patel in 2010. SOCIAL HISTORY: He denied alcohol, tobacco, or recreational drug use. 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 FAMILY HISTORY: Noncontributory. MEDICATIONS: His medications at home were reviewed by me in the chart today and reordered by me. REVIEW OF SYSTEMS: As in history of present illness. All other systems were reviewed in detail and are quite unremarkable. History And Physical [address] [address] NAME: SONIA ACOSTA : 37 STATUS : ADM IN [facility]#: [id number] AGE: 81 ADM/REG DATE : 11/07/16 MR#: [id number] REPORT SERV DATE: 11/08/16 DICTATED BY: JAVID SALVADOR DATE: 11/08/16 REPORT STATUS : Draft TRANSCRIBED BY: CHANTEL DATE: 11/08/16 PHYSICAL EXAMINATION: GENERAL: This is a pleasant 81-year-old, not in any acute distress. HEENT: His head is atraumatic and normocephalic. He is alert, awake, oriented to time, place, and person. Pupils are equal, reacting to light and accommodating. External ocular muscles are intact. Membranes are moist and pink. Sclerae nonicteric. NECK: Supple with no jugular venous distention, lymphadenopathy, or thyromegaly. LUNGS: Clear to auscultation with no wheezes, rubs, or crackles. HEART: Heart sounds were regular with no murmurs, rubs, or gallops. ABDOMEN: Soft and nondistended. There is no rebound tenderness, guarding, or rigidity. Bowel sounds appear to be diminished. EXTREMITIES: No cyanosis, clubbing, or edema. NEUROLOGIC: Grossly intact. No focal deficits. Higher functions appeared intact. He was able to move all four extremities. VITAL SIGNS: His temperature upon arrival today was 97.8, pulse 118, respirations 16 a minute, and blood pressure upon arrival was 119/63. Oxygen saturations were 94% breathing 2 L of oxygen via nasal cannula. LABORATORY DATA: Reviewed on the [facility] system today showed sodium of 135, potassium 4.8, chloride 102, and CO2 of 18, BUN was 24 with a creatinine of 1.67, which has gone up from 0.9 to 1.1 which is baseline. His blood glucose was 266 today. His albumin was 2.6, globulin 4.8, alkaline phosphatase was 117, ALT 21, AST 18. His lipase was 46. CBC showed a white blood cell count of 17,700, hemoglobin was 13.5, hematocrit 40.6, and platelet count was 220,000. MCV was 101.0. Differential showed 93 segments with 3 bands. Urinalysis was grossly unremarkable. Films of the CT scan of his abdomen and pelvis were reviewed by me on the PACS today and official Radiology report was also reviewed. There is pneumomediastinum and pneumoperitoneum seen. There is also a right hepatic lobe mass which appears to be a metastatic lesion. Films of the chest x-ray were reviewed by me on the PACS today as well, and there is a right Port-A-Cath otherwise clear. IMPRESSION: 1. Abdominal pain. 2. Pneumoperitoneum. 3. Pneumomediastinum. 4. Leukocytosis. 5. Duodenal adenocarcinoma stage IV, followed by Dr. Von Carson. Last chemo 10 days ago. 6. History of Whipple's procedure for resection of the duodenal tumor [place] [address] Patel. PLAN: We will admit Mr. Acosta to the Hospitalist Service with telemetry in the Medical History And Physical [address] [address] NAME: SONIA ACOSTA SR : 37 STATUS : ADM IN [facility]#: [id number] AGE: 81 ADM/REG DATE : 11/07/16 MR#: [id number] REPORT SERV DATE: 11/08/16 DICTATED BY: JAVID SALVADOR DATE: 11/08/16 REPORT STATUS : Draft TRANSCRIBED BY: MODL DATE: 11/08/16 Intermediate Care Unit for close monitoring of his pneumomediastinum and pneumoperitoneum. The patient will be kept n.p.o. for now and will be started on IV fluids for volume. After cultures are obtained, we will start him on empiric IV antibiotics. Dr. Plascencia had also advised, CT scan of his abdomen, pelvis, and chest with oral contrast. He will also be on IV Protonix daily and Dr. Plascencia' notes and orders were reviewed by me. We will also place him on SCD for DVT prophylaxis while here. I have discussed the above plans with the patient and his family. Their questions were answered in detail and they are agreeable to the above recommendations. Hospitalist Service will be following him during his stay here. /CHANTEL Javid Salvador M.D. / [id number] CC: MD Sue Domingo M.D.
--- NOTE | ~2016-11-07 | CN ---
Consultation Report [facility] [address] [place]. [address] NAME: SONIA ACOSTA : 37 STATUS : ADM IN [facility]#: [id number] AGE: 81 ADM/REG DATE : 11/07/16 MR#: [id number] REPORT SERV DATE: 11/12/16 DICTATED BY: NEHA LUGO III DATE: 11/11/16 REPORT STATUS : Draft TRANSCRIBED BY: CHANTEL DATE: 11/11/16 DATE OF CONSULTATION: 11/11/2016 ADDENDUM: I have been asked to see Mr. Acosta again tonight. The patient developed tachycardia and fever earlier during the day. He has been transferred to intensive care unit. PHYSICAL EXAMINATION: GENERAL: On exam, he is in no distress. He states he has mild lower abdominal pain as he has had in the past. VITAL SIGNS: His blood pressure 106/70, temperature 98.8, pulse 98. ABDOMEN: His abdomen is soft with mild tenderness in left lower quadrant. No guarding. No peritoneal signs. LABORATORY DATA: CT scan of abdomen and pelvis just performed shows decreasing pneumoperitoneum with no significant amount of fluid in the abdominal cavity. The patient does have bilateral atelectasis. ASSESSMENT: A 81-year-old male with pneumoperitoneum, which is decreasing radiographically, unclear etiology. I suspect the patient may have a small microscopic colon perforation. PLAN: The patient is stable at this time. Additional antibiotics have been ordered. I do not see any indication for immediate surgical intervention at this time, but I have explained the patient's family that surgery may be required depending on his clinical course over the next 24 to 48 hours. [place]/CHANTEL Neha Lugo III, M.D. / [id number] CC: MD Sue Garces M.D.
[~2016-11-07 11:46] MED LIST: B121000P IM; BC POWDER PO; C5 PO; FLOMAX4 PO; LIPITOR10 PO; NO MEDS; NORCO1 TA2 PO; PCET PO; PR25 PO; PRILOSEC10 MG PO; PROTONIX PO; PT TAKES NO MEDS; VITAMIN D OTC PO; VITAMIN D1000 UNI1 PO; ZOFRAN ODT4 MG PO
[2016-11-07 12:02] LABS: HEMOGLOBIN 13.5 g/dL (13.6-17.8); MEAN CORPUS HGB CONC 33.3 g/dL (32.0-36.0); MEAN CORPUSCULAR HEMOGLOB 33.6 pg (26.0-34.0); MEAN PLATELET VOLUME 9.1 fL (9.2-13.0); PLATELET COUNT 220 10/3/uL (150-400); RED CELL COUNT 4.02 10/6/uL (4.7-6.1)
[2016-11-07 12:03] LABS: HEMATOCRIT 40.6 % (40.0-51.0); MANUAL DIFF YES %; RBC DISTRIBUTION WIDTH 15.8 % (12.0-16.0); WHITE BLOOD CELLS 17.7 10/3/uL (4.5-10.5)
[2016-11-07 12:17] LABS: CALCIUM, SERUM 8.7 MG/DL (8.5-10.4); CHLORIDE, SERUM 102 MMOL/L (96-112); POTASSIUM, SERUM 4.8 MMOL/L (3.5-5.3); SGOT(AST) 18 U/L (5-40); SGPT(ALT) 21 U/L (5-65); TOTAL PROTEIN 7.4 G/DL (6.0-8.5)
[2016-11-07 12:18] LABS: A/G RATIO 0.5 (0.7-1.9); ALBUMIN 2.6 G/DL (3.5-5.0); ALKALINE PHOSPHATASE 117 U/L (45-117); BUN (BLOOD UREA NITROGEN) 24 MG/DL (6-23); CO2 (CARBON DIOXIDE) 18 MMOL/L (24-34); CREATININE 1.67 MG/DL (0.70-1.30); GFR AFRICAN AMERICAN 44 ML/MIN (>=60); GFR NON AFRICAN AMERICAN 38 ML/MIN (>=60); GLOBULIN 4.8 G/DL (2.5-4.1); GLUCOSE, SERUM 266 MG/DL (60-99); SODIUM, SERUM 135 MMOL/L (135-148); TOTAL BILIRUBIN 2.3 MG/DL (0-1.2)
[2016-11-07 12:23] LABS: BAND NEUTROPHILS 3 %; ER DIFF TAT 0 Hrs 26 Mins; LYMPHOCYTES 2 %; LYMPHOCYTES ABSOLUTE (CALC) 0.35 10/3/uL (0.67-4.30); MACROCYTES 1+ (5-10/OIF) (0-5/OIF); MONOCYTES 2 %; MONOCYTES ABSOLUTE (CALC) 0.35 10/3/uL (0.21-1.20); NEUTROPHILS ABSOLUTE (CALC) 16.99 10/3/uL (2.02-8.40); PLATELET ESTIMATE ADQ (ADEQUATE); SEGMENTED NEUTROPHIL (0) 93 %; TOTAL NUCLEATED CELLS 100
[2016-11-07 12:29] LABS: ASCORBIC ACID (UR NOT ORDER) 40 (NEG); BILIRUBIN, URINE NEGATIVE (NEG); ER URINALYSIS TAT 0 Hrs 13 Mins; KETONE, URINE NEGATIVE (NEG); LEUKOCYTE ESTERASE(NOT OR NEG (NEG); NITRITE (URINE) NEG (NEG); WBC (NOT ORDERED) (RFLEX) 2 (0-5)
[2016-11-07] MEDS ORDERED: PR25 PO (18:51)
[2016-11-07] MEDS ORDERED: MARI2.5 PO (18:53)
[2016-11-07] MEDS ORDERED: ZOFRAN8 PO (18:53)
[2016-11-07] MEDS ORDERED: OXYCOD PO (18:54)
[2016-11-07] MEDS ORDERED: VITAMIN D31000 UNIT PO (18:55)
[2016-11-07] MEDS ORDERED: FLUCON2 PO (18:58)
[2016-11-07] MEDS ORDERED: ATV.5 PO (18:59)
[2016-11-07] MEDS ORDERED: NYS500UDL PO (19:01)
[2016-11-07] MEDS ORDERED: CHEMO IV (19:05)
[2016-11-08 06:07] LABS: BASOPHILS 0.1 %; BASOPHILS ABSOLUTE 0.01 10/3/uL (0.0-0.16); EOSINOPHILS 0.1 %; EOSINOPHILS ABSOLUTE 0.01 10/3/uL (0.0-0.53); HEMOGLOBIN 11.3 g/dL (13.6-17.8); IMMATURE GRANULOCYTES 1.2 %; IMMATURE GRANULOCYTES ABSOLUTE 0.14 10/3/uL (0.0-0.11); LYMPHOCYTES ABSOLUTE 0.36 10/3/uL (0.67-4.30); MEAN CORPUS HGB CONC 33.2 g/dL (32.0-36.0); MEAN CORPUSCULAR HEMOGLOB 33.2 pg (26.0-34.0); MEAN PLATELET VOLUME 9.1 fL (9.2-13.0); MONOCYTES 6.2 %; MONOCYTES ABSOLUTE 0.75 10/3/uL (0.21-1.20); NEUTROPHILS 89.4 %; NEUTROPHILS ABSOLUTE 10.85 10/3/uL (2.02-8.40); PLATELET COUNT 166 10/3/uL (150-400); RBC DISTRIBUTION WIDTH 15.8 % (12.0-16.0); WHITE BLOOD CELLS 12.1 10/3/uL (4.5-10.5)
[2016-11-08 06:17] LABS: ER CBC TAT 0 Hrs 14 Mins; MANUAL DIFF NO %
[2016-11-08 06:21] LABS: CALCIUM, SERUM 8.7 MG/DL (8.5-10.4); CHLORIDE, SERUM 106 MMOL/L (96-112); CREATININE 1.31 MG/DL (0.70-1.30); GFR AFRICAN AMERICAN 60 ML/MIN (>=60); GFR NON AFRICAN AMERICAN 51 ML/MIN (>=60); PHOSPHORUS, SERUM 2.8 MG/DL (2.5-4.5); POTASSIUM, SERUM 4.4 MMOL/L (3.5-5.3); SODIUM, SERUM 138 MMOL/L (135-148)
[2016-11-08 06:23] LABS: BUN (BLOOD UREA NITROGEN) 28 MG/DL (6-23); CO2 (CARBON DIOXIDE) 22 MMOL/L (24-34); GLUCOSE, SERUM 126 MG/DL (60-99)
[2016-11-09 06:35] LABS: HEMATOCRIT 34.9 % (40.0-51.0); HEMOGLOBIN 11.4 g/dL (13.6-17.8); MEAN CORPUS HGB CONC 32.7 g/dL (32.0-36.0); MEAN CORPUSCULAR HEMOGLOB 32.9 pg (26.0-34.0); MEAN CORPUSCULAR VOLUME 100.9 fL (80-100); MEAN PLATELET VOLUME 9.3 fL (9.2-13.0); PLATELET COUNT 187 10/3/uL (150-400); RBC DISTRIBUTION WIDTH 15.8 % (12.0-16.0); RED CELL COUNT 3.46 10/6/uL (4.7-6.1); WHITE BLOOD CELLS 11.1 10/3/uL (4.5-10.5)
[2016-11-09 06:48] LABS: BUN (BLOOD UREA NITROGEN) 29 MG/DL (6-23); CALCIUM, SERUM 8.5 MG/DL (8.5-10.4); CHLORIDE, SERUM 108 MMOL/L (96-112); CO2 (CARBON DIOXIDE) 23 MMOL/L (24-34); GFR AFRICAN AMERICAN 66 ML/MIN (>=60); GFR NON AFRICAN AMERICAN 57 ML/MIN (>=60); GLUCOSE, SERUM 112 MG/DL (60-99); POTASSIUM, SERUM 4.2 MMOL/L (3.5-5.3); SGOT(AST) 25 U/L (5-40); SGPT(ALT) 21 U/L (5-65); SODIUM, SERUM 140 MMOL/L (135-148); TOTAL PROTEIN 6.5 G/DL (6.0-8.5)
[2016-11-09 06:52] LABS: A/G RATIO 0.4 (0.7-1.9); ALBUMIN 1.9 G/DL (3.5-5.0); ALKALINE PHOSPHATASE 104 U/L (45-117); GLOBULIN 4.6 G/DL (2.5-4.1); TOTAL BILIRUBIN 1.3 MG/DL (0-1.2)
[2016-11-09 06:57] LABS: MANUAL DIFF YES %
[2016-11-09 07:39] LABS: BAND NEUTROPHILS 19 %; LYMPHOCYTES 3 %; LYMPHOCYTES ABSOLUTE (CALC) 0.33 10/3/uL (0.67-4.30); MONOCYTES 7 %; MONOCYTES ABSOLUTE (CALC) 0.78 10/3/uL (0.21-1.20); NEUTROPHILS ABSOLUTE (CALC) 9.99 10/3/uL (2.02-8.40); PLATELET ESTIMATE ADQ (ADEQUATE); SEGMENTED NEUTROPHIL (0) 71 %; TOTAL NUCLEATED CELLS 100
[2016-11-09 07:40] LABS: RBC MORPHOLOGY NORM (NORMAL)
[2016-11-10 04:38] LABS: HEMATOCRIT 34.3 % (40.0-51.0); HEMOGLOBIN 11.3 g/dL (13.6-17.8); MEAN CORPUS HGB CONC 32.9 g/dL (32.0-36.0); MEAN CORPUSCULAR HEMOGLOB 33.2 pg (26.0-34.0); MEAN CORPUSCULAR VOLUME 100.9 fL (80-100); MEAN PLATELET VOLUME 8.9 fL (9.2-13.0); PLATELET COUNT 198 10/3/uL (150-400); RBC DISTRIBUTION WIDTH 15.7 % (12.0-16.0); WHITE BLOOD CELLS 8.5 10/3/uL (4.5-10.5)
[2016-11-10 04:40] LABS: MANUAL DIFF YES %
[2016-11-10 04:50] LABS: CALCIUM, SERUM 8.4 MG/DL (8.5-10.4); CHLORIDE, SERUM 108 MMOL/L (96-112); CO2 (CARBON DIOXIDE) 22 MMOL/L (24-34); CREATININE 0.93 MG/DL (0.70-1.30); GFR AFRICAN AMERICAN 90 ML/MIN (>=60); GFR NON AFRICAN AMERICAN 78 ML/MIN (>=60); GLUCOSE, SERUM 134 MG/DL (60-99); POTASSIUM, SERUM 4.1 MMOL/L (3.5-5.3); SODIUM, SERUM 141 MMOL/L (135-148)
[2016-11-10 04:56] LABS: BUN (BLOOD UREA NITROGEN) 18 MG/DL (6-23)
[2016-11-10 05:31] LABS: BAND NEUTROPHILS 3 %; EOSINOPHILS 2 %; EOSINOPHILS ABSOLUTE (CALC) 0.17 10/3/uL (0.0-0.53); IMMATURE GRANS ABSOLUTE (CALC) 0.17 10/3/uL (0.0-0.11); LYMPHOCYTES 2 %; LYMPHOCYTES ABSOLUTE (CALC) 0.17 10/3/uL (0.67-4.30); MACROCYTES 1+ (5-10/OIF) (0-5/OIF); METAMYELOCYTES 2 %; MONOCYTES 7 %; PLATELET ESTIMATE ADQ (ADEQUATE); RBC MORPHOLOGY NORM (NORMAL); SEGMENTED NEUTROPHIL (0) 84 %; TOTAL NUCLEATED CELLS 100
[2016-11-11 04:36] LABS: HEMATOCRIT 31.2 % (40.0-51.0); HEMOGLOBIN 10.3 g/dL (13.6-17.8); MEAN PLATELET VOLUME 8.9 fL (9.2-13.0); PLATELET COUNT 216 10/3/uL (150-400); RBC DISTRIBUTION WIDTH 15.7 % (12.0-16.0); RED CELL COUNT 3.12 10/6/uL (4.7-6.1); WHITE BLOOD CELLS 10.9 10/3/uL (4.5-10.5)
[2016-11-11 04:37] LABS: MANUAL DIFF YES %
[2016-11-11 04:47] LABS: CHLORIDE, SERUM 108 MMOL/L (96-112); CO2 (CARBON DIOXIDE) 23 MMOL/L (24-34); CREATININE 0.69 MG/DL (0.70-1.30); GFR AFRICAN AMERICAN 105 ML/MIN (>=60); GFR NON AFRICAN AMERICAN 90 ML/MIN (>=60); GLUCOSE, SERUM 113 MG/DL (60-99); POTASSIUM, SERUM 3.6 MMOL/L (3.5-5.3); SODIUM, SERUM 140 MMOL/L (135-148)
[2016-11-11 04:51] LABS: BUN (BLOOD UREA NITROGEN) 11 MG/DL (6-23)
[2016-11-11 05:05] LABS: BAND NEUTROPHILS 10 %; LYMPHOCYTES 4 %; LYMPHOCYTES ABSOLUTE (CALC) 0.44 10/3/uL (0.67-4.30); MONOCYTES 7 %; MONOCYTES ABSOLUTE (CALC) 0.76 10/3/uL (0.21-1.20); PLATELET ESTIMATE ADQ (ADEQUATE); SEGMENTED NEUTROPHIL (0) 79 %; TOTAL NUCLEATED CELLS 100
[2016-11-11 05:06] LABS: ANISOCYTOSIS 1+ (5-10/OIF) (0-5/OIF); MACROCYTES 1+ (5-10/OIF) (0-5/OIF); RBC MORPHOLOGY ABN (NORMAL)
[2016-11-11 19:09] LABS: LACTATE 3.3 MMOL/L (0.3-2.4)
[2016-11-11 19:49] LABS: ALLENS TEST Pos; BE (BASE EXCESS) -1.2 MEQ/L (0 +/- 2.5); DEVICE NC; HCO3 (ACTUAL BICARBONATE) 20.9 MEQ/L (23-27); INSTRUMENT SERIAL # 8083; METHEMOGLOBIN 0.3 % (0-3); O2 CONTENT 16.3 VOL% (18-24); OPERATOR ID 16503; PCO2 (CO2 TENSION) 28 MMHG (35-45); PO2 (O2 TENSION) 88 MMHG (79-93); SAMPLE Arterial
[2016-11-11 20:46] LABS: HEMATOCRIT 33.2 % (40.0-51.0); MEAN CORPUS HGB CONC 33.1 g/dL (32.0-36.0); MEAN CORPUSCULAR HEMOGLOB 32.7 pg (26.0-34.0); MEAN CORPUSCULAR VOLUME 98.8 fL (80-100); MEAN PLATELET VOLUME 9.4 fL (9.2-13.0); RBC DISTRIBUTION WIDTH 15.6 % (12.0-16.0); RED CELL COUNT 3.36 10/6/uL (4.7-6.1); WHITE BLOOD CELLS 15.2 10/3/uL (4.5-10.5)
[2016-11-11 20:47] LABS: MANUAL DIFF YES %; PLATELET COUNT 282 10/3/uL (150-400)
[2016-11-11 20:54] LABS: BUN (BLOOD UREA NITROGEN) 12 MG/DL (6-23); CALCIUM, SERUM 7.7 MG/DL (8.5-10.4); CHLORIDE, SERUM 103 MMOL/L (96-112); CO2 (CARBON DIOXIDE) 22 MMOL/L (24-34); CREATININE 0.89 MG/DL (0.70-1.30); DIRECT BILIRUBIN 0.3 MG/DL (0.0-0.4); GFR AFRICAN AMERICAN 94 ML/MIN (>=60); GFR NON AFRICAN AMERICAN 81 ML/MIN (>=60); GLUCOSE, SERUM 164 MG/DL (60-99); INDIRECT BILIRUBIN(NOT ORDER) 0.5 MG/DL (0.1-0.9); POTASSIUM, SERUM 3.5 MMOL/L (3.5-5.3); SODIUM, SERUM 138 MMOL/L (135-148); TOTAL BILIRUBIN 0.8 MG/DL (0-1.2)
[2016-11-11 21:05] LABS: BAND NEUTROPHILS 37 %; IMMATURE GRANS ABSOLUTE (CALC) 0.46 10/3/uL (0.0-0.11); LYMPHOCYTES 5 %; LYMPHOCYTES ABSOLUTE (CALC) 0.76 10/3/uL (0.67-4.30); MONOCYTES 5 %; MONOCYTES ABSOLUTE (CALC) 0.76 10/3/uL (0.21-1.20); MYELOCYTES 3 %; NEUTROPHILS ABSOLUTE (CALC) 13.22 10/3/uL (2.02-8.40); PLATELET ESTIMATE ADQ (ADEQUATE); SEGMENTED NEUTROPHIL (0) 50 %; TOTAL NUCLEATED CELLS 100
[2016-11-11 21:24] LABS: ANISOCYTOSIS 1+ (5-10/OIF) (0-5/OIF); POLYCHROMASIA 1+ (2-5/OIF) (0-1/OIF)
[2016-11-12 03:23] LABS: BE (BASE EXCESS) -1.5 MEQ/L (0 +/- 2.5); CARBOXYHEMOGLOBIN 0.5 % (0-3); DEVICE NC; HCO3 (ACTUAL BICARBONATE) 21.6 MEQ/L (23-27); HEMOBLOGIN CONTENT 11.6 G/DL (14-18); INSTRUMENT SERIAL # 8083; METHEMOGLOBIN 0.3 % (0-3); OPERATOR ID 16503; PCO2 (CO2 TENSION) 31 MMHG (35-45); PO2 (O2 TENSION) 111 MMHG (79-93); SAMPLE Arterial; pH 7.46 (7.37-7.43)
[2016-11-12 03:24] LABS: ALLENS TEST Pos
[2016-11-12 04:48] LABS: HEMATOCRIT 35.4 % (40.0-51.0); HEMOGLOBIN 11.8 g/dL (13.6-17.8); MEAN CORPUS HGB CONC 33.3 g/dL (32.0-36.0); MEAN CORPUSCULAR HEMOGLOB 33.4 pg (26.0-34.0); MEAN CORPUSCULAR VOLUME 100.3 fL (80-100); MEAN PLATELET VOLUME 9.3 fL (9.2-13.0); PLATELET COUNT 284 10/3/uL (150-400); RBC DISTRIBUTION WIDTH 15.9 % (12.0-16.0); RED CELL COUNT 3.53 10/6/uL (4.7-6.1); WHITE BLOOD CELLS 16.6 10/3/uL (4.5-10.5)
[2016-11-12 04:50] LABS: ALBUMIN 1.5 G/DL (3.5-5.0); ALKALINE PHOSPHATASE 101 U/L (45-117); BUN (BLOOD UREA NITROGEN) 12 MG/DL (6-23); CALCIUM, SERUM 8.2 MG/DL (8.5-10.4); CHLORIDE, SERUM 106 MMOL/L (96-112); CO2 (CARBON DIOXIDE) 22 MMOL/L (24-34); CREATININE 0.73 MG/DL (0.70-1.30); GFR AFRICAN AMERICAN 102 ML/MIN (>=60); GFR NON AFRICAN AMERICAN 88 ML/MIN (>=60); GLUCOSE, SERUM 119 MG/DL (60-99); MANUAL DIFF YES %; PHOSPHORUS, SERUM 2.7 MG/DL (2.5-4.5); SGPT(ALT) 17 U/L (5-65); SODIUM, SERUM 139 MMOL/L (135-148)
[2016-11-12 04:51] LABS: DIRECT BILIRUBIN 0.1 MG/DL (0.0-0.4); INDIRECT BILIRUBIN(NOT ORDER) 0.9 MG/DL (0.1-0.9); POTASSIUM, SERUM 4.2 MMOL/L (3.5-5.3); SGOT(AST) 31 U/L (5-40)
[2016-11-12 04:56] LABS: LACTATE 1.6 MMOL/L (0.3-2.4)
[2016-11-12 06:11] LABS: BAND NEUTROPHILS 18 %; LYMPHOCYTES 3 %; MONOCYTES 3 %; PLATELET ESTIMATE ADQ (ADEQUATE); RBC MORPHOLOGY NORM (NORMAL); SEGMENTED NEUTROPHIL (0) 76 %; TOTAL NUCLEATED CELLS 100
[2016-11-13 02:25] LABS: HEMATOCRIT 33.7 % (40.0-51.0); HEMOGLOBIN 11.3 g/dL (13.6-17.8); MEAN CORPUS HGB CONC 33.5 g/dL (32.0-36.0); MEAN CORPUSCULAR HEMOGLOB 33.5 pg (26.0-34.0); MEAN PLATELET VOLUME 9.3 fL (9.2-13.0); RBC DISTRIBUTION WIDTH 15.7 % (12.0-16.0); RED CELL COUNT 3.37 10/6/uL (4.7-6.1)
[2016-11-13 02:26] LABS: MANUAL DIFF YES %; PLATELET COUNT 384 10/3/uL (150-400); WHITE BLOOD CELLS 29.3 10/3/uL (4.5-10.5)
[2016-11-13 02:37] LABS: PHOSPHORUS, SERUM 2.3 MG/DL (2.5-4.5)
[2016-11-13 02:49] LABS: BAND NEUTROPHILS 10 %; IMMATURE GRANS ABSOLUTE (CALC) 0.29 10/3/uL (0.0-0.11); LYMPHOCYTES 2 %; LYMPHOCYTES ABSOLUTE (CALC) 0.59 10/3/uL (0.67-4.30); MACROCYTES 1+ (5-10/OIF) (0-5/OIF); METAMYELOCYTES 1 %; MONOCYTES 6 %; MONOCYTES ABSOLUTE (CALC) 1.76 10/3/uL (0.21-1.20); NEUTROPHILS ABSOLUTE (CALC) 26.66 10/3/uL (2.02-8.40); PLATELET ESTIMATE ADQ (ADEQUATE); SEGMENTED NEUTROPHIL (0) 81 %; TOTAL NUCLEATED CELLS 100
[2016-11-13 04:23] LABS: FREE T4 1.02 NG/DL (0.76-1.46); ULTRASENSITIVE TSH 0.384 MCIU/ML (0.358-3.740)
[2016-11-13 05:07] LABS: BUN (BLOOD UREA NITROGEN) 13 MG/DL (6-23); CALCIUM, SERUM 8.1 MG/DL (8.5-10.4); CHLORIDE, SERUM 107 MMOL/L (96-112); CO2 (CARBON DIOXIDE) 19 MMOL/L (24-34); CREATININE 0.83 MG/DL (0.70-1.30); GFR AFRICAN AMERICAN 97 ML/MIN (>=60); GFR NON AFRICAN AMERICAN 84 ML/MIN (>=60); POTASSIUM, SERUM 4.6 MMOL/L (3.5-5.3); SODIUM, SERUM 138 MMOL/L (135-148)
[2016-11-13 05:10] LABS: GLUCOSE, SERUM 252 MG/DL (60-99)
[2016-11-14 03:29] LABS: HEMOGLOBIN 9.5 g/dL (13.6-17.8); MEAN CORPUS HGB CONC 33.3 g/dL (32.0-36.0); MEAN PLATELET VOLUME 9.1 fL (9.2-13.0); PLATELET COUNT 334 10/3/uL (150-400); RED CELL COUNT 2.88 10/6/uL (4.7-6.1); WHITE BLOOD CELLS 17.6 10/3/uL (4.5-10.5)
[2016-11-14 03:30] LABS: HEMATOCRIT 28.5 % (40.0-51.0); MANUAL DIFF YES %
[2016-11-14 03:48] LABS: BAND NEUTROPHILS 10 %; EOSINOPHILS 1 %; EOSINOPHILS ABSOLUTE (CALC) 0.18 10/3/uL (0.0-0.53); IMMATURE GRANS ABSOLUTE (CALC) 0.53 10/3/uL (0.0-0.11); LYMPHOCYTES 5 %; LYMPHOCYTES ABSOLUTE (CALC) 0.88 10/3/uL (0.67-4.30); METAMYELOCYTES 1 %; MONOCYTES 2 %; MONOCYTES ABSOLUTE (CALC) 0.35 10/3/uL (0.21-1.20); MYELOCYTES 2 %; NEUTROPHILS ABSOLUTE (CALC) 15.66 10/3/uL (2.02-8.40); SEGMENTED NEUTROPHIL (0) 79 %; TOTAL NUCLEATED CELLS 100
[2016-11-14 03:49] LABS: ALBUMIN 1.4 G/DL (3.5-5.0); CALCIUM, SERUM 7.5 MG/DL (8.5-10.4); CHLORIDE, SERUM 105 MMOL/L (96-112); CREATININE 0.65 MG/DL (0.70-1.30); GFR AFRICAN AMERICAN 107 ML/MIN (>=60); GFR NON AFRICAN AMERICAN 93 ML/MIN (>=60); PLATELET ESTIMATE ADQ (ADEQUATE); POTASSIUM, SERUM 3.9 MMOL/L (3.5-5.3); RBC MORPHOLOGY NORM (NORMAL); SODIUM, SERUM 138 MMOL/L (135-148)
[2016-11-14 03:51] LABS: BUN (BLOOD UREA NITROGEN) 9 MG/DL (6-23); CO2 (CARBON DIOXIDE) 24 MMOL/L (24-34); GLUCOSE, SERUM 154 MG/DL (60-99); PHOSPHORUS, SERUM 1.6 MG/DL (2.5-4.5)
[2016-11-14 14:45] LABS: POTASSIUM, SERUM 4.1 MMOL/L (3.5-5.3)
[2016-11-14 14:46] LABS: PHOSPHORUS, SERUM 2.4 MG/DL (2.5-4.5)
[2016-11-15 04:29] LABS: MEAN CORPUS HGB CONC 33.3 g/dL (32.0-36.0); MEAN CORPUSCULAR HEMOGLOB 33.2 pg (26.0-34.0); MEAN CORPUSCULAR VOLUME 99.7 fL (80-100); MEAN PLATELET VOLUME 8.8 fL (9.2-13.0); PLATELET COUNT 411 10/3/uL (150-400); RBC DISTRIBUTION WIDTH 15.8 % (12.0-16.0); RED CELL COUNT 3.31 10/6/uL (4.7-6.1); WHITE BLOOD CELLS 18.3 10/3/uL (4.5-10.5)
[2016-11-15 04:31] LABS: MANUAL DIFF YES %
[2016-11-15 04:33] LABS: ALBUMIN 1.6 G/DL (3.5-5.0); BUN (BLOOD UREA NITROGEN) 10 MG/DL (6-23); CALCIUM, SERUM 8.1 MG/DL (8.5-10.4); CHLORIDE, SERUM 102 MMOL/L (96-112); CO2 (CARBON DIOXIDE) 22 MMOL/L (24-34); GLUCOSE, SERUM 137 MG/DL (60-99); POTASSIUM, SERUM 4.6 MMOL/L (3.5-5.3); SODIUM, SERUM 137 MMOL/L (135-148)
[2016-11-15 04:35] LABS: CREATININE 1.19 MG/DL (0.70-1.30); GFR AFRICAN AMERICAN 67 ML/MIN (>=60); GFR NON AFRICAN AMERICAN 58 ML/MIN (>=60)
[2016-11-15 05:20] LABS: BAND NEUTROPHILS 10 %; IMMATURE GRANS ABSOLUTE (CALC) 0.55 10/3/uL (0.0-0.11); LYMPHOCYTES 9 %; LYMPHOCYTES ABSOLUTE (CALC) 1.65 10/3/uL (0.67-4.30); METAMYELOCYTES 2 %; MONOCYTES 1 %; MONOCYTES ABSOLUTE (CALC) 0.18 10/3/uL (0.21-1.20); MYELOCYTES 1 %; NEUTROPHILS ABSOLUTE (CALC) 15.92 10/3/uL (2.02-8.40); SEGMENTED NEUTROPHIL (0) 77 %; TOTAL NUCLEATED CELLS 100
[2016-11-15 05:21] LABS: PLATELET ESTIMATE SLT INC (ADEQUATE); RBC MORPHOLOGY NORM (NORMAL)
[2016-11-15 14:26] LABS: ALLENS TEST Pos; BE (BASE EXCESS) 1.3 MEQ/L (0 +/- 2.5); CARBOXYHEMOGLOBIN 1.3 % (0-3); HCO3 (ACTUAL BICARBONATE) 23.5 MEQ/L (23-27); HEMOBLOGIN CONTENT 11.9 G/DL (14-18); INSTRUMENT SERIAL # 8083; METHEMOGLOBIN 0.3 % (0-3); OPERATOR ID 35784; PCO2 (CO2 TENSION) 30 MMHG (35-45); SAMPLE Arterial; pH 7.52 (7.37-7.43)
[2016-11-15 14:44] LABS: HEMATOCRIT 32.3 % (40.0-51.0); HEMOGLOBIN 10.7 g/dL (13.6-17.8)
[2016-11-16 04:38] LABS: HEMATOCRIT 32.1 % (40.0-51.0); HEMOGLOBIN 10.6 g/dL (13.6-17.8); MANUAL DIFF YES %; MEAN CORPUSCULAR HEMOGLOB 32.5 pg (26.0-34.0); MEAN CORPUSCULAR VOLUME 98.5 fL (80-100); MEAN PLATELET VOLUME 8.8 fL (9.2-13.0); PLATELET COUNT 373 10/3/uL (150-400); RED CELL COUNT 3.26 10/6/uL (4.7-6.1); WHITE BLOOD CELLS 24.1 10/3/uL (4.5-10.5)
[2016-11-16 04:58] LABS: BAND NEUTROPHILS 5 %; EOSINOPHILS 2 %; EOSINOPHILS ABSOLUTE (CALC) 0.48 10/3/uL (0.0-0.53); LYMPHOCYTES 5 %; LYMPHOCYTES ABSOLUTE (CALC) 1.21 10/3/uL (0.67-4.30); MONOCYTES 2 %; MONOCYTES ABSOLUTE (CALC) 0.48 10/3/uL (0.21-1.20); NEUTROPHILS ABSOLUTE (CALC) 21.93 10/3/uL (2.02-8.40); SEGMENTED NEUTROPHIL (0) 86 %; TOTAL NUCLEATED CELLS 100
[2016-11-16 04:59] LABS: PLATELET ESTIMATE ADQ (ADEQUATE); RBC MORPHOLOGY NORM (NORMAL)
[2016-11-16 05:06] LABS: ALBUMIN 1.6 G/DL (3.5-5.0); ALKALINE PHOSPHATASE 103 U/L (45-117); BUN (BLOOD UREA NITROGEN) 8 MG/DL (6-23); CALCIUM, SERUM 7.9 MG/DL (8.5-10.4); CHLORIDE, SERUM 102 MMOL/L (96-112); CO2 (CARBON DIOXIDE) 24 MMOL/L (24-34); CREATININE 0.71 MG/DL (0.70-1.30); DIRECT BILIRUBIN 0.2 MG/DL (0.0-0.4); GFR AFRICAN AMERICAN 103 ML/MIN (>=60); GFR NON AFRICAN AMERICAN 89 ML/MIN (>=60); GLUCOSE, SERUM 136 MG/DL (60-99); INDIRECT BILIRUBIN(NOT ORDER) 0.7 MG/DL (0.1-0.9); POTASSIUM, SERUM 4.3 MMOL/L (3.5-5.3); SGOT(AST) 16 U/L (5-40); SGPT(ALT) 12 U/L (5-65); SODIUM, SERUM 136 MMOL/L (135-148); TOTAL BILIRUBIN 0.9 MG/DL (0-1.2); TOTAL PROTEIN 5.8 G/DL (6.0-8.5)
[2016-11-16 05:07] LABS: PHOSPHORUS, SERUM 2.4 MG/DL (2.5-4.5)
[2016-11-16 06:34] LABS: PROCALCITONIN 0.44 ng/mL (<0.5)
[2016-11-17 05:24] LABS: HEMATOCRIT 31.7 % (40.0-51.0); HEMOGLOBIN 10.5 g/dL (13.6-17.8); MEAN CORPUS HGB CONC 33.1 g/dL (32.0-36.0); MEAN CORPUSCULAR HEMOGLOB 32.8 pg (26.0-34.0); MEAN CORPUSCULAR VOLUME 99.1 fL (80-100); MEAN PLATELET VOLUME 8.9 fL (9.2-13.0); PLATELET COUNT 439 10/3/uL (150-400); RBC DISTRIBUTION WIDTH 15.8 % (12.0-16.0); WHITE BLOOD CELLS 18.9 10/3/uL (4.5-10.5)
[2016-11-17 05:26] LABS: MANUAL DIFF YES %
[2016-11-17 05:39] LABS: ALBUMIN 1.6 G/DL (3.5-5.0); ALKALINE PHOSPHATASE 106 U/L (45-117); BUN (BLOOD UREA NITROGEN) 8 MG/DL (6-23); CHLORIDE, SERUM 99 MMOL/L (96-112); CO2 (CARBON DIOXIDE) 25 MMOL/L (24-34); DIRECT BILIRUBIN 0.2 MG/DL (0.0-0.4); GFR AFRICAN AMERICAN 104 ML/MIN (>=60); GFR NON AFRICAN AMERICAN 90 ML/MIN (>=60); GLUCOSE, SERUM 130 MG/DL (60-99); INDIRECT BILIRUBIN(NOT ORDER) 0.8 MG/DL (0.1-0.9); PHOSPHORUS, SERUM 2.6 MG/DL (2.5-4.5); POTASSIUM, SERUM 4.2 MMOL/L (3.5-5.3); SGOT(AST) 14 U/L (5-40); SGPT(ALT) 13 U/L (5-65); SODIUM, SERUM 134 MMOL/L (135-148)
[2016-11-17 06:38] LABS: PROCALCITONIN 0.29 ng/mL (<0.5)
[2016-11-17 06:59] LABS: BAND NEUTROPHILS 11 %; EOSINOPHILS 1 %; EOSINOPHILS ABSOLUTE (CALC) 0.19 10/3/uL (0.0-0.53); IMMATURE GRANS ABSOLUTE (CALC) 1.32 10/3/uL (0.0-0.11); LYMPHOCYTES 8 %; LYMPHOCYTES ABSOLUTE (CALC) 1.51 10/3/uL (0.67-4.30); METAMYELOCYTES 5 %; MONOCYTES 3 %; MONOCYTES ABSOLUTE (CALC) 0.57 10/3/uL (0.21-1.20); MYELOCYTES 2 %; NEUTROPHILS ABSOLUTE (CALC) 15.31 10/3/uL (2.02-8.40); PLATELET ESTIMATE ADQ (ADEQUATE); RBC MORPHOLOGY NORM (NORMAL); SEGMENTED NEUTROPHIL (0) 70 %; TOTAL NUCLEATED CELLS 100
[2016-11-18 04:43] LABS: HEMATOCRIT 30.9 % (40.0-51.0); HEMOGLOBIN 10.2 g/dL (13.6-17.8); MEAN CORPUSCULAR HEMOGLOB 32.7 pg (26.0-34.0); MEAN PLATELET VOLUME 8.8 fL (9.2-13.0); PLATELET COUNT 410 10/3/uL (150-400); RBC DISTRIBUTION WIDTH 16.2 % (12.0-16.0); RED CELL COUNT 3.12 10/6/uL (4.7-6.1); WHITE BLOOD CELLS 13.6 10/3/uL (4.5-10.5)
[2016-11-18 04:47] LABS: MANUAL DIFF YES %
[2016-11-18 04:55] LABS: BUN (BLOOD UREA NITROGEN) 7 MG/DL (6-23); CHLORIDE, SERUM 102 MMOL/L (96-112); CO2 (CARBON DIOXIDE) 23 MMOL/L (24-34); CREATININE 0.71 MG/DL (0.70-1.30); GFR AFRICAN AMERICAN 103 ML/MIN (>=60); GFR NON AFRICAN AMERICAN 89 ML/MIN (>=60); GLUCOSE, SERUM 127 MG/DL (60-99); PHOSPHORUS, SERUM 2.3 MG/DL (2.5-4.5); POTASSIUM, SERUM 4.2 MMOL/L (3.5-5.3); SODIUM, SERUM 136 MMOL/L (135-148)
[2016-11-18 05:36] LABS: BAND NEUTROPHILS 12 %; IMMATURE GRANS ABSOLUTE (CALC) 0.54 10/3/uL (0.0-0.11); LYMPHOCYTES 8 %; LYMPHOCYTES ABSOLUTE (CALC) 1.09 10/3/uL (0.67-4.30); METAMYELOCYTES 3 %; MONOCYTES 6 %; MONOCYTES ABSOLUTE (CALC) 0.82 10/3/uL (0.21-1.20); MYELOCYTES 1 %; NEUTROPHILS ABSOLUTE (CALC) 11.15 10/3/uL (2.02-8.40); PLATELET ESTIMATE SLT INC (ADEQUATE); SEGMENTED NEUTROPHIL (0) 70 %; TOTAL NUCLEATED CELLS 100
[2016-11-18 05:37] LABS: RBC MORPHOLOGY NORM (NORMAL)
[2016-11-18 22:17] LABS: ASCORBIC ACID (UR NOT ORDER) NEG (NEG); BILIRUBIN, URINE NEGATIVE (NEG); KETONE, URINE NEGATIVE (NEG); LEUKOCYTE ESTERASE(NOT OR LARGE (NEG)
[2016-11-18 22:18] LABS: WBC (NOT ORDERED) (RFLEX) > 182 (0-5)
[2016-11-19 04:43] LABS: HEMOGLOBIN 11.3 g/dL (13.6-17.8); MEAN CORPUS HGB CONC 32.9 g/dL (32.0-36.0); MEAN CORPUSCULAR HEMOGLOB 32.9 pg (26.0-34.0); MEAN PLATELET VOLUME 8.6 fL (9.2-13.0); PLATELET COUNT 396 10/3/uL (150-400); RBC DISTRIBUTION WIDTH 16.2 % (12.0-16.0); RED CELL COUNT 3.43 10/6/uL (4.7-6.1)
[2016-11-19 04:46] LABS: HEMATOCRIT 34.3 % (40.0-51.0); MANUAL DIFF YES %; WHITE BLOOD CELLS 19.3 10/3/uL (4.5-10.5)
[2016-11-19 05:05] LABS: BUN (BLOOD UREA NITROGEN) 7 MG/DL (6-23); CALCIUM, SERUM 8.2 MG/DL (8.5-10.4); CHLORIDE, SERUM 101 MMOL/L (96-112); CO2 (CARBON DIOXIDE) 21 MMOL/L (24-34); CREATININE 0.73 MG/DL (0.70-1.30); GFR AFRICAN AMERICAN 102 ML/MIN (>=60); GFR NON AFRICAN AMERICAN 88 ML/MIN (>=60); GLUCOSE, SERUM 132 MG/DL (60-99); PHOSPHORUS, SERUM 2.3 MG/DL (2.5-4.5); POTASSIUM, SERUM 4.5 MMOL/L (3.5-5.3); SODIUM, SERUM 134 MMOL/L (135-148)
[2016-11-19 06:19] LABS: BAND NEUTROPHILS 5 %; BASOPHILS 1 %; BASOPHILS ABSOLUTE (CALC) 0.19 10/3/uL (0.0-0.16); EOSINOPHILS 1 %; EOSINOPHILS ABSOLUTE (CALC) 0.19 10/3/uL (0.0-0.53); IMMATURE GRANS ABSOLUTE (CALC) 0.77 10/3/uL (0.0-0.11); LYMPHOCYTES 6 %; LYMPHOCYTES ABSOLUTE (CALC) 1.16 10/3/uL (0.67-4.30); METAMYELOCYTES 4 %; MONOCYTES 2 %; MONOCYTES ABSOLUTE (CALC) 0.39 10/3/uL (0.21-1.20); PLATELET ESTIMATE ADQ (ADEQUATE); RBC MORPHOLOGY NORM (NORMAL); SEGMENTED NEUTROPHIL (0) 81 %; TOTAL NUCLEATED CELLS 100
[2016-11-20 04:43] LABS: HEMATOCRIT 30.9 % (40.0-51.0); HEMOGLOBIN 10.1 g/dL (13.6-17.8); MEAN CORPUS HGB CONC 32.7 g/dL (32.0-36.0); MEAN CORPUSCULAR HEMOGLOB 32.7 pg (26.0-34.0); MEAN PLATELET VOLUME 8.6 fL (9.2-13.0); PLATELET COUNT 362 10/3/uL (150-400); RBC DISTRIBUTION WIDTH 16.4 % (12.0-16.0); RED CELL COUNT 3.09 10/6/uL (4.7-6.1); WHITE BLOOD CELLS 14.7 10/3/uL (4.5-10.5)
[2016-11-20 04:44] LABS: MANUAL DIFF YES %
[2016-11-20 04:56] LABS: BUN (BLOOD UREA NITROGEN) 7 MG/DL (6-23); CHLORIDE, SERUM 103 MMOL/L (96-112); CO2 (CARBON DIOXIDE) 23 MMOL/L (24-34); CREATININE 0.76 MG/DL (0.70-1.30); GFR AFRICAN AMERICAN 101 ML/MIN (>=60); GFR NON AFRICAN AMERICAN 87 ML/MIN (>=60); GLUCOSE, SERUM 122 MG/DL (60-99); POTASSIUM, SERUM 4.3 MMOL/L (3.5-5.3); SODIUM, SERUM 136 MMOL/L (135-148)
[2016-11-20 05:22] LABS: BAND NEUTROPHILS 5 %; IMMATURE GRANS ABSOLUTE (CALC) 0.88 10/3/uL (0.0-0.11); LYMPHOCYTES 5 %; LYMPHOCYTES ABSOLUTE (CALC) 0.74 10/3/uL (0.67-4.30); METAMYELOCYTES 4 %; MONOCYTES 5 %; MONOCYTES ABSOLUTE (CALC) 0.74 10/3/uL (0.21-1.20); MYELOCYTES 2 %; NEUTROPHILS ABSOLUTE (CALC) 12.35 10/3/uL (2.02-8.40); SEGMENTED NEUTROPHIL (0) 79 %; TOTAL NUCLEATED CELLS 100
[2016-11-20 05:23] LABS: MACROCYTES 1+ (5-10/OIF) (0-5/OIF); PATH REVIEW YES; PLATELET ESTIMATE ADQ (ADEQUATE)
[2016-11-21 06:22] LABS: HEMOGLOBIN 9.8 g/dL (13.6-17.8); MANUAL DIFF YES %; MEAN CORPUS HGB CONC 32.7 g/dL (32.0-36.0); MEAN CORPUSCULAR HEMOGLOB 32.7 pg (26.0-34.0); MEAN PLATELET VOLUME 8.5 fL (9.2-13.0); PLATELET COUNT 334 10/3/uL (150-400); RBC DISTRIBUTION WIDTH 16.2 % (12.0-16.0); WHITE BLOOD CELLS 11.4 10/3/uL (4.5-10.5)
[2016-11-21 06:34] LABS: BUN (BLOOD UREA NITROGEN) 5 MG/DL (6-23); CALCIUM, SERUM 8.3 MG/DL (8.5-10.4); CHLORIDE, SERUM 102 MMOL/L (96-112); CO2 (CARBON DIOXIDE) 26 MMOL/L (24-34); CREATININE 0.73 MG/DL (0.70-1.30); GFR AFRICAN AMERICAN 102 ML/MIN (>=60); GFR NON AFRICAN AMERICAN 88 ML/MIN (>=60); GLUCOSE, SERUM 119 MG/DL (60-99); POTASSIUM, SERUM 4.5 MMOL/L (3.5-5.3); SODIUM, SERUM 136 MMOL/L (135-148)
[2016-11-21 06:39] LABS: BAND NEUTROPHILS 1 %; BASOPHILS 1 %; BASOPHILS ABSOLUTE (CALC) 0.11 10/3/uL (0.0-0.16); EOSINOPHILS 2 %; EOSINOPHILS ABSOLUTE (CALC) 0.23 10/3/uL (0.0-0.53); IMMATURE GRANS ABSOLUTE (CALC) 0.68 10/3/uL (0.0-0.11); LYMPHOCYTES 11 %; LYMPHOCYTES ABSOLUTE (CALC) 1.25 10/3/uL (0.67-4.30); METAMYELOCYTES 6 %; MONOCYTES 1 %; MONOCYTES ABSOLUTE (CALC) 0.11 10/3/uL (0.21-1.20); NEUTROPHILS ABSOLUTE (CALC) 9.01 10/3/uL (2.02-8.40); SEGMENTED NEUTROPHIL (0) 78 %; TOTAL NUCLEATED CELLS 100
[2016-11-21 06:40] LABS: MACROCYTES 1+ (5-10/OIF) (0-5/OIF); PLATELET ESTIMATE ADQ (ADEQUATE); TOXIC GRANULATION 1+
[2016-11-22 06:12] LABS: HEMOGLOBIN 10.4 g/dL (13.6-17.8); MEAN CORPUS HGB CONC 32.5 g/dL (32.0-36.0); MEAN CORPUSCULAR HEMOGLOB 32.2 pg (26.0-34.0); MEAN CORPUSCULAR VOLUME 99.1 fL (80-100); MEAN PLATELET VOLUME 8.5 fL (9.2-13.0); PLATELET COUNT 341 10/3/uL (150-400); RBC DISTRIBUTION WIDTH 15.8 % (12.0-16.0); RED CELL COUNT 3.23 10/6/uL (4.7-6.1); WHITE BLOOD CELLS 11.1 10/3/uL (4.5-10.5)
[2016-11-22 06:16] LABS: MANUAL DIFF YES %
[2016-11-22 06:22] LABS: BUN (BLOOD UREA NITROGEN) 5 MG/DL (6-23); CHLORIDE, SERUM 100 MMOL/L (96-112); CO2 (CARBON DIOXIDE) 27 MMOL/L (24-34); CREATININE 0.76 MG/DL (0.70-1.30); GFR AFRICAN AMERICAN 101 ML/MIN (>=60); GFR NON AFRICAN AMERICAN 87 ML/MIN (>=60); POTASSIUM, SERUM 4.3 MMOL/L (3.5-5.3); SODIUM, SERUM 135 MMOL/L (135-148)
[2016-11-22 06:25] LABS: GLUCOSE, SERUM 143 MG/DL (60-99)
[2016-11-22 07:18] LABS: BAND NEUTROPHILS 11 %; BASOPHILS 1 %; BASOPHILS ABSOLUTE (CALC) 0.11 10/3/uL (0.0-0.16); IMMATURE GRANS ABSOLUTE (CALC) 0.22 10/3/uL (0.0-0.11); LYMPHOCYTES 4 %; LYMPHOCYTES ABSOLUTE (CALC) 0.44 10/3/uL (0.67-4.30); METAMYELOCYTES 2 %; MONOCYTES 4 %; MONOCYTES ABSOLUTE (CALC) 0.44 10/3/uL (0.21-1.20); NEUTROPHILS ABSOLUTE (CALC) 9.88 10/3/uL (2.02-8.40); PLATELET ESTIMATE ADQ (ADEQUATE); SEGMENTED NEUTROPHIL (0) 78 %; TOTAL NUCLEATED CELLS 100
[2016-11-22 07:19] LABS: POLYCHROMASIA 1+ (2-5/OIF) (0-1/OIF)
[2016-11-22 18:19] LABS: ASCORBIC ACID (UR NOT ORDER) NEG (NEG); BILIRUBIN, URINE NEGATIVE (NEG); KETONE, URINE NEGATIVE (NEG); LEUKOCYTE ESTERASE(NOT OR LARGE (NEG); WBC (NOT ORDERED) (RFLEX) 72 (0-5)
[2016-11-23 06:43] LABS: HEMATOCRIT 31.8 % (40.0-51.0); HEMOGLOBIN 10.5 g/dL (13.6-17.8); MEAN CORPUSCULAR HEMOGLOB 33.1 pg (26.0-34.0); MEAN CORPUSCULAR VOLUME 100.3 fL (80-100); MEAN PLATELET VOLUME 8.7 fL (9.2-13.0); PLATELET COUNT 321 10/3/uL (150-400); RBC DISTRIBUTION WIDTH 16.2 % (12.0-16.0); RED CELL COUNT 3.17 10/6/uL (4.7-6.1)
[2016-11-23 06:47] LABS: MANUAL DIFF YES %
[2016-11-23 06:54] LABS: BUN (BLOOD UREA NITROGEN) 5 MG/DL (6-23); CALCIUM, SERUM 8.1 MG/DL (8.5-10.4); CHLORIDE, SERUM 102 MMOL/L (96-112); CO2 (CARBON DIOXIDE) 26 MMOL/L (24-34); CREATININE 0.85 MG/DL (0.70-1.30); GFR AFRICAN AMERICAN 96 ML/MIN (>=60); GFR NON AFRICAN AMERICAN 83 ML/MIN (>=60); POTASSIUM, SERUM 4.4 MMOL/L (3.5-5.3); SODIUM, SERUM 136 MMOL/L (135-148)
[2016-11-23 06:55] LABS: GLUCOSE, SERUM 107 MG/DL (60-99)
[2016-11-23 08:06] LABS: BAND NEUTROPHILS 3 %; LYMPHOCYTES 2 %; MACROCYTES 1+ (5-10/OIF) (0-5/OIF); MONOCYTES 8 %; PLATELET ESTIMATE ADQ (ADEQUATE); SEGMENTED NEUTROPHIL (0) 87 %; TOTAL NUCLEATED CELLS 100
[2016-11-24 04:58] LABS: BASOPHILS 0.4 %; BASOPHILS ABSOLUTE 0.04 10/3/uL (0.0-0.16); EOSINOPHILS 1.2 %; EOSINOPHILS ABSOLUTE 0.13 10/3/uL (0.0-0.53); HEMATOCRIT 31.9 % (40.0-51.0); HEMOGLOBIN 10.7 g/dL (13.6-17.8); IMMATURE GRANULOCYTES 4.5 %; LYMPHOCYTES 12.7 %; LYMPHOCYTES ABSOLUTE 1.41 10/3/uL (0.67-4.30); MEAN CORPUS HGB CONC 33.5 g/dL (32.0-36.0); MEAN CORPUSCULAR HEMOGLOB 33.3 pg (26.0-34.0); MEAN CORPUSCULAR VOLUME 99.4 fL (80-100); MEAN PLATELET VOLUME 8.6 fL (9.2-13.0); MONOCYTES 10.3 %; MONOCYTES ABSOLUTE 1.14 10/3/uL (0.21-1.20); NEUTROPHILS 70.9 %; NEUTROPHILS ABSOLUTE 7.86 10/3/uL (2.02-8.40); PLATELET COUNT 292 10/3/uL (150-400); RED CELL COUNT 3.21 10/6/uL (4.7-6.1); WHITE BLOOD CELLS 11.1 10/3/uL (4.5-10.5)
[2016-11-24 05:01] LABS: MANUAL DIFF NO %
[2016-11-24 05:13] LABS: BUN (BLOOD UREA NITROGEN) 5 MG/DL (6-23); CHLORIDE, SERUM 102 MMOL/L (96-112); CO2 (CARBON DIOXIDE) 26 MMOL/L (24-34); CREATININE 0.78 MG/DL (0.70-1.30); GFR AFRICAN AMERICAN 100 ML/MIN (>=60); GFR NON AFRICAN AMERICAN 86 ML/MIN (>=60); GLUCOSE, SERUM 123 MG/DL (60-99); POTASSIUM, SERUM 4.4 MMOL/L (3.5-5.3); SODIUM, SERUM 135 MMOL/L (135-148)
[2016-11-25 04:35] LABS: BASOPHILS 0.5 %; BASOPHILS ABSOLUTE 0.05 10/3/uL (0.0-0.16); EOSINOPHILS 1.4 %; EOSINOPHILS ABSOLUTE 0.14 10/3/uL (0.0-0.53); HEMATOCRIT 31.8 % (40.0-51.0); HEMOGLOBIN 10.4 g/dL (13.6-17.8); IMMATURE GRANULOCYTES 3.4 %; IMMATURE GRANULOCYTES ABSOLUTE 0.35 10/3/uL (0.0-0.11); LYMPHOCYTES 17.4 %; LYMPHOCYTES ABSOLUTE 1.77 10/3/uL (0.67-4.30); MANUAL DIFF NO %; MEAN CORPUS HGB CONC 32.7 g/dL (32.0-36.0); MEAN CORPUSCULAR HEMOGLOB 32.3 pg (26.0-34.0); MEAN CORPUSCULAR VOLUME 98.8 fL (80-100); MEAN PLATELET VOLUME 8.7 fL (9.2-13.0); MONOCYTES ABSOLUTE 1.12 10/3/uL (0.21-1.20); NEUTROPHILS 66.3 %; NEUTROPHILS ABSOLUTE 6.74 10/3/uL (2.02-8.40); PLATELET COUNT 259 10/3/uL (150-400); RED CELL COUNT 3.22 10/6/uL (4.7-6.1); WHITE BLOOD CELLS 10.2 10/3/uL (4.5-10.5)
[2016-11-25 04:54] LABS: BUN (BLOOD UREA NITROGEN) 6 MG/DL (6-23); CALCIUM, SERUM 8.3 MG/DL (8.5-10.4); CHLORIDE, SERUM 103 MMOL/L (96-112); CO2 (CARBON DIOXIDE) 24 MMOL/L (24-34); CREATININE 0.75 MG/DL (0.70-1.30); GFR AFRICAN AMERICAN 101 ML/MIN (>=60); GFR NON AFRICAN AMERICAN 87 ML/MIN (>=60); GLUCOSE, SERUM 117 MG/DL (60-99); POTASSIUM, SERUM 4.5 MMOL/L (3.5-5.3); SODIUM, SERUM 136 MMOL/L (135-148)
[2016-11-26 06:32] LABS: BASOPHILS 0.6 %; BASOPHILS ABSOLUTE 0.04 10/3/uL (0.0-0.16); EOSINOPHILS ABSOLUTE 0.21 10/3/uL (0.0-0.53); HEMATOCRIT 29.9 % (40.0-51.0); HEMOGLOBIN 9.8 g/dL (13.6-17.8); IMMATURE GRANULOCYTES 4.4 %; IMMATURE GRANULOCYTES ABSOLUTE 0.31 10/3/uL (0.0-0.11); LYMPHOCYTES 17.9 %; LYMPHOCYTES ABSOLUTE 1.27 10/3/uL (0.67-4.30); MANUAL DIFF NO %; MEAN CORPUS HGB CONC 32.8 g/dL (32.0-36.0); MEAN CORPUSCULAR HEMOGLOB 32.5 pg (26.0-34.0); MEAN PLATELET VOLUME 8.7 fL (9.2-13.0); MONOCYTES 14.9 %; MONOCYTES ABSOLUTE 1.06 10/3/uL (0.21-1.20); NEUTROPHILS 59.2 %; NEUTROPHILS ABSOLUTE 4.21 10/3/uL (2.02-8.40); PLATELET COUNT 225 10/3/uL (150-400); RBC DISTRIBUTION WIDTH 15.9 % (12.0-16.0); RED CELL COUNT 3.02 10/6/uL (4.7-6.1); WHITE BLOOD CELLS 7.1 10/3/uL (4.5-10.5)
[2016-11-26 06:36] LABS: BUN (BLOOD UREA NITROGEN) 5 MG/DL (6-23); CALCIUM, SERUM 8.4 MG/DL (8.5-10.4); CHLORIDE, SERUM 102 MMOL/L (96-112); CO2 (CARBON DIOXIDE) 27 MMOL/L (24-34); CREATININE 0.85 MG/DL (0.70-1.30); GFR AFRICAN AMERICAN 96 ML/MIN (>=60); GFR NON AFRICAN AMERICAN 83 ML/MIN (>=60); GLUCOSE, SERUM 105 MG/DL (60-99); POTASSIUM, SERUM 4.5 MMOL/L (3.5-5.3); SODIUM, SERUM 136 MMOL/L (135-148)
[2016-11-27 05:58] LABS: BASOPHILS 0.7 %; BASOPHILS ABSOLUTE 0.06 10/3/uL (0.0-0.16); EOSINOPHILS 2.9 %; EOSINOPHILS ABSOLUTE 0.25 10/3/uL (0.0-0.53); HEMATOCRIT 32.2 % (40.0-51.0); HEMOGLOBIN 10.5 g/dL (13.6-17.8); IMMATURE GRANULOCYTES 3.5 %; LYMPHOCYTES 18.1 %; LYMPHOCYTES ABSOLUTE 1.54 10/3/uL (0.67-4.30); MEAN CORPUS HGB CONC 32.6 g/dL (32.0-36.0); MEAN CORPUSCULAR HEMOGLOB 32.3 pg (26.0-34.0); MEAN CORPUSCULAR VOLUME 99.1 fL (80-100); MEAN PLATELET VOLUME 8.8 fL (9.2-13.0); MONOCYTES 13.5 %; MONOCYTES ABSOLUTE 1.15 10/3/uL (0.21-1.20); NEUTROPHILS 61.3 %; NEUTROPHILS ABSOLUTE 5.22 10/3/uL (2.02-8.40); PLATELET COUNT 225 10/3/uL (150-400); RBC DISTRIBUTION WIDTH 16.1 % (12.0-16.0); RED CELL COUNT 3.25 10/6/uL (4.7-6.1); WHITE BLOOD CELLS 8.5 10/3/uL (4.5-10.5)
[2016-11-27 06:02] LABS: MANUAL DIFF NO %
[2016-11-27 07:18] LABS: BUN (BLOOD UREA NITROGEN) 6 MG/DL (6-23); CALCIUM, SERUM 8.4 MG/DL (8.5-10.4); CHLORIDE, SERUM 104 MMOL/L (96-112); CO2 (CARBON DIOXIDE) 25 MMOL/L (24-34); CREATININE 0.75 MG/DL (0.70-1.30); GFR AFRICAN AMERICAN 101 ML/MIN (>=60); GFR NON AFRICAN AMERICAN 87 ML/MIN (>=60); GLUCOSE, SERUM 105 MG/DL (60-99); POTASSIUM, SERUM 4.6 MMOL/L (3.5-5.3); SODIUM, SERUM 137 MMOL/L (135-148)
[2016-11-29 05:59] LABS: BASOPHILS 0.5 %; BASOPHILS ABSOLUTE 0.04 10/3/uL (0.0-0.16); EOSINOPHILS 2.8 %; EOSINOPHILS ABSOLUTE 0.22 10/3/uL (0.0-0.53); HEMATOCRIT 31.9 % (40.0-51.0); HEMOGLOBIN 10.7 g/dL (13.6-17.8); IMMATURE GRANULOCYTES 2.7 %; IMMATURE GRANULOCYTES ABSOLUTE 0.21 10/3/uL (0.0-0.11); LYMPHOCYTES 24.1 %; LYMPHOCYTES ABSOLUTE 1.88 10/3/uL (0.67-4.30); MEAN CORPUS HGB CONC 33.5 g/dL (32.0-36.0); MEAN CORPUSCULAR HEMOGLOB 33.1 pg (26.0-34.0); MEAN CORPUSCULAR VOLUME 98.8 fL (80-100); MEAN PLATELET VOLUME 9.2 fL (9.2-13.0); MONOCYTES 14.7 %; MONOCYTES ABSOLUTE 1.15 10/3/uL (0.21-1.20); NEUTROPHILS 55.2 %; PLATELET COUNT 199 10/3/uL (150-400); RED CELL COUNT 3.23 10/6/uL (4.7-6.1); WHITE BLOOD CELLS 7.8 10/3/uL (4.5-10.5)
[2016-11-29 06:00] LABS: ALBUMIN 1.7 G/DL (3.5-5.0); BUN (BLOOD UREA NITROGEN) 8 MG/DL (6-23); CALCIUM, SERUM 8.4 MG/DL (8.5-10.4); CHLORIDE, SERUM 100 MMOL/L (96-112); CO2 (CARBON DIOXIDE) 26 MMOL/L (24-34); CREATININE 0.76 MG/DL (0.70-1.30); GFR AFRICAN AMERICAN 101 ML/MIN (>=60); GFR NON AFRICAN AMERICAN 87 ML/MIN (>=60); POTASSIUM, SERUM 4.3 MMOL/L (3.5-5.3); SODIUM, SERUM 135 MMOL/L (135-148)
[2016-11-29 06:01] LABS: MANUAL DIFF NO %
[2016-11-29 06:11] LABS: GLUCOSE, SERUM 83 MG/DL (60-99); PHOSPHORUS, SERUM 3.4 MG/DL (2.5-4.5)
[2016-11-30 07:54] LABS: CALCIUM, SERUM 8.1 MG/DL (8.5-10.4); CHLORIDE, SERUM 101 MMOL/L (96-112); CO2 (CARBON DIOXIDE) 23 MMOL/L (24-34); CREATININE 0.76 MG/DL (0.70-1.30); GFR AFRICAN AMERICAN 101 ML/MIN (>=60); GFR NON AFRICAN AMERICAN 87 ML/MIN (>=60); GLUCOSE, SERUM 94 MG/DL (60-99); SODIUM, SERUM 133 MMOL/L (135-148)
[2016-11-30 07:55] LABS: BUN (BLOOD UREA NITROGEN) 12 MG/DL (6-23)
[2016-11-30 07:56] LABS: POTASSIUM, SERUM 5.7 MMOL/L (3.5-5.3)
== END 2016-11-30 18:39 | DRG 853 ==
LOC: ER 11:46 → ER/OF 20:03 → IMCU 11-08 13:34 → 5SO 11-11 11:06 → MIC 11-11 20:58 → 5SO 11-20 15:56
PROVIDERS: Emergency Medicine; Hospitalist; Internal Medicine; Internal Medicine Critical Care Medicine; Internal Medicine Pulmonary Disease; Surgery
PROC: 0DBN0ZZ Excision of Sigmoid Colon, Open Approach (ICD-10-PCS; principal; 2016-11-12 13:45)
PROC: 0D1N0Z4 Bypass Sigmoid Colon to Cutaneous, Open Approach (ICD-10-PCS; 2016-11-12 13:45)
PROC: 0W9G3ZZ Drainage of Peritoneal Cavity, Percutaneous Approach (ICD-10-PCS; 2016-11-16)
DX: A41.9 Sepsis, unspecified organism (principal); G93.49 Other encephalopathy; J96.00 Acute respiratory failure, unspecified whether with hypoxia or hypercapnia; J90 Pleural effusion, not elsewhere classified; E87.2 Acidosis; K57.20 Diverticulitis of large intestine with perforation and abscess without bleeding; C78.7 Secondary malignant neoplasm of liver and intrahepatic bile duct; C79.51 Secondary malignant neoplasm of bone; K56.7 Ileus, unspecified; I47.1 Supraventricular tachycardia; N39.0 Urinary tract infection, site not specified; T81.4XXA Infection following a procedure, initial encounter; N32.2 Vesical fistula, not elsewhere classified; Z66 Do not resuscitate; B96.1 Klebsiella pneumoniae [K. pneumoniae] as the cause of diseases classified elsewhere; T81.82XA Emphysema (subcutaneous) resulting from a procedure, initial encounter; Z92.21 Personal history of antineoplastic chemotherapy; Z85.068 Personal history of other malignant neoplasm of small intestine; Z90.49 Acquired absence of other specified parts of digestive tract; Z98.890 Other specified postprocedural states; E78.5 Hyperlipidemia, unspecified; B96.20 Unspecified Escherichia coli [E. coli] as the cause of diseases classified elsewhere
CPT/HCPCS: 36600; 49083; 49406; 51600; 71010; 71250; 74000; 74020; 74176; 74430; 80048; 80053; 80069; 80076; 80202; 81001; 82140; 82150; 82247; 82248; 82570; 82805; 82962; 83605; 83690; 83735; 83880; 84100; 84132; 84145; 84439; 84443; 85014; 85018; 85025; 86140; 87015; 87040; 87070; 87075; 87077; 87086; 87102; 87116; 87186; 87205; 87641; 88307; 92610-GN; 93005; 93970; 96365; 96375; 97110-GP; 97116-GP; 97162-GP; 97530-GP; 99285; A9270-GY; C8929; C9113; J0360; J0690; J1170; J1956; J2250; J2370; J2405; J2543; J2550; J2710; J2765; J3010; J3370; P9045; Q9957; Q9958

== ENCOUNTER 2016-12-17 05:36 | Inpatient (IN) | payer BC ==
--- NOTE | ~2016-12-17 | HP ---
History And Physical [place] [id number] [facility] [place]. [address] NAME: SONIA ACOSTA SR : 37 STATUS : ADM IN [facility]#: [id number] AGE: 81 ADM/REG DATE : 12/17/16 MR#: [id number] REPORT SERV DATE: 12/17/16 DICTATED BY: ANA FERNANDEZ DATE: 12/17/16 REPORT STATUS : Draft TRANSCRIBED BY: MODJessica DATE: 12/17/16 DATE OF ADMISSION: 12/17/2016 CHIEF COMPLAINT: Stool coming from wound VAC. HISTORY OF PRESENT ILLNESS: Patient is a very pleasant unfortunate 81-year-old white male. He was diagnosed with duodenal adenocarcinoma in 2009. He underwent a Whipple procedure, 12 cycles of chemo, then back in 08/2016, he was diagnosed with a sacral metastatic lesion as well as a liver lesion which was thought to be metastatic adeno CA from his primary duodenal adeno years ago. He was treated with radiation therapy and then he started chemotherapy, got one round of chemotherapy and developed a sigmoid colon perforation, ultimately underwent a sigmoid colectomy with a Tre pouch and ostomy. Postop, he developed a vesicocutaneous fistula which had a Thomas catheter and a wound VAC initially, now it had stopped draining urine around the . He did well yesterday until around 7:30 p.m. when he suddenly had onset of stool coming from the wound VAC. He had a fever to 100, but nothing higher. He did not have any chills or sweats. He has had lower abdominal pain, but this is not new. He has had no nausea or vomiting. He has been eating and drinking normally. PAST MEDICAL HISTORY: 1. Duodenal adeno CA with a history of Whipple, 12 cycles of chemo. 2. 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 3. Hyperlipidemia. 4. Port-A-Cath placement. 5. Perforated sigmoid colon with subsequent colectomy and ostomy. 6. SVT. 7. Wound infection. 8. Abscess with status post HUMA drainage. 9. ESBL urinary tract infection. 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 FAMILY HISTORY: Positive for thyroid cancer in his father. SOCIAL HISTORY: He does not smoke or drink. Lives independently. Currently, he is in a rehab center. ALLERGIES: NO KNOWN DRUG ALLERGIES. PAST SURGICAL HISTORY: He has had a Whipple and now a colectomy with ostomy. HOME MEDICATIONS: Reviewed and attached. REVIEW OF SYSTEMS: Full 10-point review of systems obtained. Pertinent positives are mentioned in the HPI. History And Physical [place] [address] [place]. [address] NAME: SONIA ACOSTA SR : 37 STATUS : ADM IN [facility]#: [id number] AGE: 81 ADM/REG DATE : 12/17/16 MR#: [id number] REPORT SERV DATE: 12/17/16 DICTATED BY: ANA FERNANDEZ DATE: 12/17/16 REPORT STATUS : Draft TRANSCRIBED BY: CHANTEL DATE: 12/17/16 PHYSICAL EXAMINATION: VITAL SIGNS: BP 112/55, sats 96% on 1 L, temperature 98.3, pulse 78, respiratory rate 20. GENERAL: Well-developed white male, in no apparent distress. HEENT: Normocephalic, atraumatic. Throat is clear. NECK: Supple. HEART: Regular rate and rhythm. LUNGS: Grossly clear. ABDOMEN: Soft. He has an ostomy present. He then has another wound just lateral to the ostomy on the right which has stool contents coming out of it. EXTREMITIES: Warm and dry. Skin is intact. His pulses are 2+ at his feet. He has no peripheral edema. LABORATORY AND X-RAY: Chest x-ray is negative. CT of the abdomen and pelvis shows left- sided colostomy, cutaneous fistula in the midline that contained stool, collection of air and stool in the left lower abdomen extending into the pelvis that is adjacent to the ostomy and sigmoid. Finding appears related to fistula, there is a 2 x 1.7 cm abscess collection in the right pelvis. He has stable metastatic disease at the right lobe of the liver. Urinalysis shows 73 whites. Procalcitonin is 0.33. Basic metabolic panel is essentially normal other than a sodium of 133. Albumin is only 2.2. LFTs are otherwise normal. Alkaline phosphatase is 122. Coags are normal. Lactate is 2.4. ASSESSMENT/PLAN: 1. New, what looks like an enterocutaneous fistula. We will defer to Dr. Plascencia. I am going to make him n.p.o., provide IV fluids. 2. Possible intraabdominal abscess, fluid collection. We will place him on some IV Zosyn, again make n.p.o., defer to Dr. Plascencia. 3. Possible urinary tract infection. He has covered with Zosyn. We will culture his urine and blood. 4. Metastatic adenocarcinoma. Prognosis seems poor given ongoing multiple complications related to perforation and surgery. I suspect he will not be a candidate for chemo or radiation any time soon. 5. Metastatic adenocarcinoma to bone and liver. 6. Previous Whipple. 7. History of supraventricular tachycardia. 8. Deep venous thrombosis prophylaxis with subcutaneous heparin. 9. Disposition, pending above the aforementioned plan and workup. LEONA/CHANTEL Ana Fernandez M.D. / [id number] CC: History And Physical [address] [address] NAME: SONIA ACOSTA SR : 37 STATUS : ADM IN PAT#: [id number] AGE: 81 ADM/REG DATE : 12/17/16 MR#: [id number] REPORT SERV DATE: 12/17/16 DICTATED BY: ANA FERNANDEZ DATE: 12/17/16 REPORT STATUS : Draft TRANSCRIBED BY: CHANTEL DATE: 12/17/16 Magalys Martinez M.D. Richard Hunter Jennings III, M.D. Derek W Holland, M.D.
--- NOTE | ~2016-12-17 | CN ---
Consultation Report [facility] [address] [place]. [address] NAME: SONIA ACOSTA SR : 37 STATUS : ADM IN [facility]#: [id number] AGE: 81 ADM/REG DATE : 12/17/16 MR#: [id number] REPORT SERV DATE: 12/18/16 DICTATED BY: NEHA LUGO III DATE: 12/18/16 REPORT STATUS : Draft TRANSCRIBED BY: MODJessica DATE: 12/18/16 CONSULTATION DATE OF CONSULTATION: 12/17/2016 REASON FOR CONSULT: 1. Possible fistula. 2. Recommendation regarding surgical management. HISTORY OF PRESENT ILLNESS: We were asked to see this 81-year-old male in the hospital for the above reasons. The patient has a very complicated history. He has a history of stage IV duodenal cancer with large hepatic metastasis. Earlier this year, he was undergoing chemotherapy. The patient has been admitted to the hospital emergently in November with evidence for colon perforation. At that time, the patient was critically ill. He underwent an emergent sigmoid colectomy with colostomy. He was found to have ruptured diverticulitis with a large abscess. The patient's postoperative recovery was slow but uneventful. He was discharged home after rehab on 11/29/2016. At the time of discharge, the patient had a known cyst of cutaneous fistula. This was controlled with a midline incision. Based on the patient's underlying stage IV malignancy, based on his poor nutrition with an albumin of 1.9 at that time, and after consultation with Urology, it was felt that surgical intervention regarding this fistula was not indicated. This was a controlled fistula controlled by the wound VAC. The patient was discharged with the Thomas catheter in place and wound VAC in place. The patient was discharged to Skilled Care Facility. Since his discharge, his Thomas catheter was removed. The patient apparently was doing well with absolutely no problems. He is having no fever or chills. He began having a large amount of stool like drainage from the wound suddenly and presented to the emergency room with these complaints. Initially on exam, there was no evidence for any further drainage. The patient has some abdominal pain related to the wound itself. He has had no nausea or vomiting. His maximum temperature was a 100. There is no surrounding cellulitis noted around the wound. PAST MEDICAL HISTORY: 1. History of stage IV duodenal cancer as above, status post Whipple procedure in 2009, with recurrent chemotherapy required earlier this year. The patient has documented large hepatic metastasis. 2. Sepsis on recent admission in November with ruptured sigmoid diverticulitis with a large pelvic abscess. 3. Arthritis. 4. History of GI bleed. 5. Anemia. 6. Hyperlipidemia. PAST SURGICAL HISTORY: Includes a Whipple procedure in 2009, recent sigmoid colectomy with Consultation Report [address] [place]. [address] NAME: SONIA ACOSTA SR : 37 STATUS : ADM IN [facility]#: [id number] AGE: 81 ADM/REG DATE : 12/17/16 MR#: [id number] REPORT SERV DATE: 12/18/16 DICTATED BY: NEHA LUGO III DATE: 12/18/16 REPORT STATUS : Draft TRANSCRIBED BY: CHANTEL DATE: 12/18/16 colostomy in November 2006, tonsillectomy and appendectomy, and umbilical hernia repair. HOME MEDICATIONS: Ativan, Mycostatin, Zofran, oxycodone, and Phenergan. ALLERGIES: NONE. SOCIAL HISTORY: No history of tobacco or alcohol use. The patient is retired. FAMILY HISTORY: Unremarkable. PHYSICAL EXAMINATION: GENERAL: This is a male who appears chronically ill but not acutely ill. He is alert and oriented x3. VITAL SIGNS: Blood pressure 112/55, temperature 98.3, pulse 78. HEENT: Unremarkable. Cranial nerves 2 through 12 are normal. LUNGS: Clear. CARDIAC: Normal. ABDOMEN: Soft, nontender. He has an open midline incision from the pubis towards the umbilicus. In the ER, this was reported to contain a fecal material. On exam of the wound initially the wound was clean and granulating. There was noted to be minimal healing or filling in the wound since the patient's discharge. On exam now, however, there was clearly feculent drainage from the superior portion of the wound. The wound bed itself was otherwise clean, but there was minimal healing or feeling in of the wound since his discharge. It should be noted, there has been no further urinary drainage, and no evidence for cysto-cutaneous fistula. EXTREMITIES: Normal. LABS AND DIAGNOSTIC DATA: Hematocrit 34, white blood cell count 10.7, electrolytes are normal. Review of the CT scan of the abdomen and pelvis shows a focus of air in the mid lower abdominal area, where the incision is located. There is no fluid and no evidence for any drainable abscess. No definite fistula was seen. However, there was clearly one present clinically. The patient's procalcitonin is 0.3. ASSESSMENT: 1. 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 This is a controlled fistula. 2. Status post recent cysto-cutaneous fistula, which has now healed. The patient's Thomas catheter has been removed. 3. History of previous sigmoid colectomy with colostomy for ruptured sigmoid diverticulitis with a pelvic abscess. 4. Duodenal cancer, stage IV. 5. Severe malnutrition related to the patient's duodenal cancer. PLAN: The patient is stable at this time. He has no evidence for sepsis or infection. This appears to be a controlled fistula. This has occurred spontaneously, which is consistent Consultation Report [address] [place]. [address] NAME: SONIA ACOSTA : 37 STATUS : ADM IN PAT#: [id number] AGE: 81 ADM/REG DATE : 12/17/16 MR#: [id number] REPORT SERV DATE: 12/18/16 DICTATED BY: NEHA LUGO III DATE: 12/18/16 REPORT STATUS : Draft TRANSCRIBED BY: CHANTEL DATE: 12/18/16 with the patient's stage IV malignancy and underlying severe malnutrition. The options at this time would be surgical intervention for attempted repair of the fistula versus pouching the fistula and excepting this as a controlled fistula and treating it has a stoma. Based on the patient's severe malnutrition with albumin of 1.9 and based on the fact he has stage IV duodenal cancer, I think the second option is clearly the best and safest for the patient. His previous cysto-cutaneous fistula has healed and it is possible this fistula may heal, but this will depend on his nutritional status and prognosis which is guarded, again giving a stage IV malignancy. He has been felt not to be a candidate for any further chemotherapy by his medical oncologist. We will ask the Wound Team to pouch the fistula. As long as this can be controlled in terms of the pouch, I think the nonoperative management is the best for the patient at this time. This plan has been discussed with the patient. His questions were answered, he understands and agrees to this plan. RHJ/CHANTEL Neha Lugo III, M.D. / [phone]
--- NOTE | ~2016-12-17 | DS ---
Discharge Summary [facility] [address] [place]. [address] NAME: SONIA ACOSTA SR : 37 STATUS : DIS IN PAT#: [id number] AGE: 81 ADM/REG DATE : 12/17/16 MR#: [id number] REPORT SERV DATE: 12/21/16 DICTATED BY: LALO AIKEN II DATE: 12/20/16 REPORT STATUS : Draft TRANSCRIBED BY: MODL DATE: 12/20/16 ADMISSION DATE: 12/17/2016 DISCHARGE DATE: 12/20/2016 DISCHARGE DIAGNOSES: 1. 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 2. Urinary tract infection. 3. Metastatic duodenal adenocarcinoma. 4. Generalized debility. 5. History of Whipple. 6. History of SVT. CONSULTS: Dr. Plascencia, surgery. BRIEF HISTORY OF PRESENT ILLNESS: The patient is a 81-year-old male with the above history who presented to [facility] due to stool coming from wound VAC from midline surgical wound. For detailed history and physical examination, please see Dr. Fernandez' note from 12/19/2016. HOSPITAL COURSE: On admission, he indeed did have stool coming from his abdominal wound, clearly a fistulous connection to his colon as his ostomy bag was decompressed by the wound VAC. His white count was normal. He was afebrile, nontoxic, and overall did not show any evidence of infection of his midline surgical wound. The opinion of Dr. Plascencia was that he does not think the patient was a candidate for surgical intervention at this point in time and given the fistula appeared to be stable, elected for treating it as a stoma and pouching it externally. Wound Care was consulted and created a sealed pouch around the wound which seems to be draining stool with good seal. He also did have about 40 white cells in his urine and E. coli and culture. He was initially placed on Zosyn given his abdominal wound and stool, but this was discontinued as no evidence of infection, however, given his UTI, will be continued on Duricef for 5 more days. Otherwise, he is stable for discharge, and all of his other medications were continued. He will be discharged back to his residential facility for further rehabilitation. DISCHARGE MEDICATIONS: 1. Duricef 1 g p.o. b.i.d. 2. Colace 100 mg p.o. b.i.d. 3. Ativan 0.5 mg p.o. q.8 hours p.r.n. anxiety. 4. Tylenol 650 mg p.o. q.4 hours p.r.n. 5. Marinol 5 mg p.o. q.12 hours. 6. Nystatin oral suspension 5 mL p.o. q.6 hours p.r.n. thrush. 7. Zofran 8 mg p.o. q.12 hours p.r.n. nausea. 8. Percocet 10/325 mg p.o. q.4 hours p.r.n. pain. 9. Phenergan 25 mg p.o. q.6 hours p.r.n. nausea. DISCHARGE INSTRUCTIONS: The patient will follow up with Dr. Plascencia in two weeks. Discharge Summary [address] [place]. [address] NAME: SONIA ACOSTA : 37 STATUS : DIS IN PAT#: [id number] AGE: 81 ADM/REG DATE : 12/17/16 MR#: [id number] REPORT SERV DATE: 12/21/16 DICTATED BY: LALO AIKEN II DATE: 12/20/16 REPORT STATUS : Draft TRANSCRIBED BY: CHANTEL DATE: 12/20/16 TRA/CHANTEL Lalo Aiken II, MD / [id number]
[2016-12-17 05:16] LABS: BASOPHILS 0.1 %; BASOPHILS ABSOLUTE 0.01 10/3/uL (0.0-0.16); EOSINOPHILS 0.4 %; EOSINOPHILS ABSOLUTE 0.04 10/3/uL (0.0-0.53); ER CBC TAT 0 Hrs 07 Mins; HEMATOCRIT 34.6 % (40.0-51.0); HEMOGLOBIN 11.3 g/dL (13.6-17.8); IMMATURE GRANULOCYTES 0.5 %; IMMATURE GRANULOCYTES ABSOLUTE 0.05 10/3/uL (0.0-0.11); LYMPHOCYTES 10.8 %; LYMPHOCYTES ABSOLUTE 1.16 10/3/uL (0.67-4.30); MEAN CORPUS HGB CONC 32.7 g/dL (32.0-36.0); MEAN CORPUSCULAR HEMOGLOB 31.7 pg (26.0-34.0); MEAN CORPUSCULAR VOLUME 97.2 fL (80-100); MEAN PLATELET VOLUME 8.9 fL (9.2-13.0); MONOCYTES 13.3 %; MONOCYTES ABSOLUTE 1.43 10/3/uL (0.21-1.20); NEUTROPHILS 74.9 %; NEUTROPHILS ABSOLUTE 8.05 10/3/uL (2.02-8.40); PLATELET COUNT 254 10/3/uL (150-400); RBC DISTRIBUTION WIDTH 15.2 % (12.0-16.0); RED CELL COUNT 3.56 10/6/uL (4.7-6.1); WHITE BLOOD CELLS 10.7 10/3/uL (4.5-10.5)
[2016-12-17 05:17] LABS: MANUAL DIFF NO %
[2016-12-17 05:28] LABS: BUN (BLOOD UREA NITROGEN) 11 MG/DL (6-23); CALCIUM, SERUM 8.5 MG/DL (8.5-10.4); CHLORIDE, SERUM 99 MMOL/L (96-112); CO2 (CARBON DIOXIDE) 27 MMOL/L (24-34); CREATININE 0.85 MG/DL (0.70-1.30); DIRECT BILIRUBIN 0.2 MG/DL (0.0-0.4); GFR AFRICAN AMERICAN 96 ML/MIN (>=60); GFR NON AFRICAN AMERICAN 83 ML/MIN (>=60); INDIRECT BILIRUBIN(NOT ORDER) 0.5 MG/DL (0.1-0.9); POTASSIUM, SERUM 4.2 MMOL/L (3.5-5.3); SODIUM, SERUM 133 MMOL/L (135-148); TOTAL BILIRUBIN 0.7 MG/DL (0-1.2)
[2016-12-17 05:29] LABS: GLUCOSE, SERUM 133 MG/DL (60-99)
[~2016-12-17 05:36] MED LIST changes: +ATV.5 PO; +CHEMO IV; +FLUCON2 PO; +MARI2.5 PO; +NYS500UDL PO; +OXYCOD PO; +VITAMIN D31000 UNIT PO; +ZOFRAN8 PO
[2016-12-17 06:07] LABS: INTERNATIONAL NORMAL RATI 1.2 UNITS (-); PARTIAL THROMBO TIME 31.6 SEC (22.5-37.2); PROTIME (NOT ORD) 15.5 SEC (12.0-14.5)
[2016-12-17 06:14] LABS: A/G RATIO 0.4 (0.7-1.9); ALBUMIN 2.2 G/DL (3.5-5.0); ALKALINE PHOSPHATASE 122 U/L (45-117); GLOBULIN 5.1 G/DL (2.5-4.1); SGOT(AST) 31 U/L (5-40); SGPT(ALT) 17 U/L (5-65); TOTAL PROTEIN 7.3 G/DL (6.0-8.5)
[2016-12-17 08:48] LABS: ASCORBIC ACID (UR NOT ORDER) NEG (NEG); BILIRUBIN, URINE NEGATIVE (NEG); ER URINALYSIS TAT 0 Hrs 00 Mins; KETONE, URINE NEGATIVE (NEG); LEUKOCYTE ESTERASE(NOT OR MOD (NEG); NITRITE (URINE) POS (NEG); WBC (NOT ORDERED) (RFLEX) 43 (0-5)
[2016-12-17] MEDS ORDERED: D.O.S.100 MG PO (10:24)
[2016-12-17] MEDS ORDERED: ATV.5 PO (10:24)
[2016-12-17] MEDS ORDERED: 8 HOUR650 MG PO (10:24)
[2016-12-17] MEDS ORDERED: MARI5 PO (10:24)
[2016-12-17] MEDS ORDERED: OXYCOD PO (10:25)
[2016-12-17] MEDS ORDERED: NYS500UDL PO (10:25)
[2016-12-17] MEDS ORDERED: ZOFRAN8 PO (10:25)
[2016-12-17] MEDS ORDERED: PR25 PO (10:27)
[2016-12-17 16:19] LABS: BASOPHILS 0.1 %; BASOPHILS ABSOLUTE 0.01 10/3/uL (0.0-0.16); EOSINOPHILS 0.4 %; EOSINOPHILS ABSOLUTE 0.04 10/3/uL (0.0-0.53); HEMATOCRIT 32.9 % (40.0-51.0); HEMOGLOBIN 10.7 g/dL (13.6-17.8); IMMATURE GRANULOCYTES 0.5 %; IMMATURE GRANULOCYTES ABSOLUTE 0.05 10/3/uL (0.0-0.11); LYMPHOCYTES 14.6 %; LYMPHOCYTES ABSOLUTE 1.47 10/3/uL (0.67-4.30); MEAN CORPUS HGB CONC 32.5 g/dL (32.0-36.0); MEAN CORPUSCULAR HEMOGLOB 31.8 pg (26.0-34.0); MEAN CORPUSCULAR VOLUME 97.9 fL (80-100); MEAN PLATELET VOLUME 8.8 fL (9.2-13.0); MONOCYTES 12.9 %; NEUTROPHILS 71.5 %; NEUTROPHILS ABSOLUTE 7.18 10/3/uL (2.02-8.40); PLATELET COUNT 246 10/3/uL (150-400); RBC DISTRIBUTION WIDTH 15.4 % (12.0-16.0); RED CELL COUNT 3.36 10/6/uL (4.7-6.1); WHITE BLOOD CELLS 10.1 10/3/uL (4.5-10.5)
[2016-12-17 16:20] LABS: MANUAL DIFF NO %
[2016-12-17 16:24] LABS: BUN (BLOOD UREA NITROGEN) 9 MG/DL (6-23); CALCIUM, SERUM 8.5 MG/DL (8.5-10.4); CHLORIDE, SERUM 102 MMOL/L (96-112); CO2 (CARBON DIOXIDE) 24 MMOL/L (24-34); GFR AFRICAN AMERICAN 98 ML/MIN (>=60); GFR NON AFRICAN AMERICAN 85 ML/MIN (>=60); GLUCOSE, SERUM 109 MG/DL (60-99); POTASSIUM, SERUM 4.3 MMOL/L (3.5-5.3); SODIUM, SERUM 133 MMOL/L (135-148)
[2016-12-18 04:38] LABS: BASOPHILS 0.2 %; BASOPHILS ABSOLUTE 0.02 10/3/uL (0.0-0.16); EOSINOPHILS 1.1 %; HEMATOCRIT 35.3 % (40.0-51.0); HEMOGLOBIN 11.4 g/dL (13.6-17.8); IMMATURE GRANULOCYTES 0.6 %; IMMATURE GRANULOCYTES ABSOLUTE 0.05 10/3/uL (0.0-0.11); LYMPHOCYTES 17.3 %; LYMPHOCYTES ABSOLUTE 1.57 10/3/uL (0.67-4.30); MANUAL DIFF NO %; MEAN CORPUS HGB CONC 32.3 g/dL (32.0-36.0); MEAN CORPUSCULAR VOLUME 99.2 fL (80-100); MEAN PLATELET VOLUME 8.5 fL (9.2-13.0); MONOCYTES ABSOLUTE 1.36 10/3/uL (0.21-1.20); NEUTROPHILS 65.8 %; NEUTROPHILS ABSOLUTE 5.95 10/3/uL (2.02-8.40); PLATELET COUNT 253 10/3/uL (150-400); RBC DISTRIBUTION WIDTH 15.1 % (12.0-16.0); RED CELL COUNT 3.56 10/6/uL (4.7-6.1); WHITE BLOOD CELLS 9.1 10/3/uL (4.5-10.5)
[2016-12-18 04:47] LABS: BUN (BLOOD UREA NITROGEN) 7 MG/DL (6-23); CALCIUM, SERUM 8.2 MG/DL (8.5-10.4); CHLORIDE, SERUM 101 MMOL/L (96-112); CO2 (CARBON DIOXIDE) 28 MMOL/L (24-34); CREATININE 0.71 MG/DL (0.70-1.30); GFR AFRICAN AMERICAN 103 ML/MIN (>=60); GFR NON AFRICAN AMERICAN 89 ML/MIN (>=60); GLUCOSE, SERUM 119 MG/DL (60-99); POTASSIUM, SERUM 4.2 MMOL/L (3.5-5.3); SODIUM, SERUM 134 MMOL/L (135-148)
== END 2016-12-20 19:56 | DRG 393 ==
LOC: ER 05:36 → 7NO 11:13
PROVIDERS: Internal Medicine; Nurse Practitioner Acute Care; Specialist
DX: K63.2 Fistula of intestine (principal); E43 Unspecified severe protein-calorie malnutrition; C78.7 Secondary malignant neoplasm of liver and intrahepatic bile duct; N39.0 Urinary tract infection, site not specified; I47.1 Supraventricular tachycardia; B96.20 Unspecified Escherichia coli [E. coli] as the cause of diseases classified elsewhere; Z68.1 Body mass index [BMI] 19.9 or less, adult; E78.5 Hyperlipidemia, unspecified; Z85.09 Personal history of malignant neoplasm of other digestive organs; Z90.49 Acquired absence of other specified parts of digestive tract; Z92.21 Personal history of antineoplastic chemotherapy; Z93.3 Colostomy status
CPT/HCPCS: 71010; 74177; 80048; 80053; 81001; 82247; 82248; 83605; 84145; 85025; 85610; 85730; 87040; 87077; 87086; 87186; 93005; 97161-GP; 97165-GO; 99285; A9270-GY; J1170; J2543